=== PATIENT | female | born 1985 | race Caucasian/White ===

== ENCOUNTER 2018-04-16 16:23 | Emergency (ER) | payer MEDICAID ==
[~2018-04-16] VITALS: Ht 172.7 cm; Wt 73.0 kg
[~2018-04-16 16:23] MED LIST: CETI10CA PO; IBUP-1223 PO; LISD40CA3 PO; NORE0.3513 PO; OXYC-302 PO; PREN1TAB27 PO; SERTRALINE PO; VITAMIN C PO
[2018-04-16 16:41] VITALS: BP 135/101
[2018-04-16] MEDS ORDERED: AZITHROMYCIN 250 MG TABLET PO STA (17:27)
[2018-04-16] MEDS ORDERED: LIDOCAINE-MPF 1%, 5ML INFIL ONE (17:30)
[2018-04-16] MEDS ORDERED: CEFTRIAXONE 250 MG IM ONE (17:30)
[2018-04-16] MEDS ORDERED: HYDROmorphone 1 MG/ML, 1ML ONE (17:53)
[2018-04-16] MEDS ORDERED: AZITHROMYCIN 250 MG TABLET ONE (17:53)
[2018-04-16] MEDS ORDERED: HYDROmorphone 1 MG/ML, 1ML IM ONE (18:00)
[2018-04-16] MEDS ORDERED: LIDOCAINE-MPF 1%, 5ML ONE (18:23)
--- NOTE | 2018-04-16 18:25 | NUR ---
REPORT FROM ABDIRAHMAN MISHRA.
[2018-04-16] MEDS ORDERED: AZITHROMYCIN 250 MG TABLET PO ONE (18:30)
[2018-04-16] MEDS ORDERED: CEFTRIAXONE 250 MG ONE (18:52)
--- NOTE | 2018-04-16 18:59 | NUR ---
PT MEDICATED PER APR. POC UPDATED.
--- NOTE | 2018-04-16 19:35 | NUR ---
ATTEMPTING TO D/C PT. PT REQUESTING TO SPEAK WITH ERP REGARDING LEFT EYE.
--- NOTE | 2018-04-16 19:40 | NUR ---
PT GIVEN D/C PAPERWORK. PT VERBALIZED UNDERSTANDING. PT AWARE TO RETURN IN 2 DAYS.
== END 2018-04-16 20:01 | disposition home or self-care (01) ==
LOC: ED 19:55
DX: L02.414 Cutaneous abscess of left upper limb (principal); H57.12 Ocular pain, left eye
CPT/HCPCS: 10060; 96372; 99283; J0696; J1170

== ENCOUNTER 2018-05-19 19:13 | Emergency (ER) | payer MEDICAID ==
[~2018-05-19] VITALS: Ht 172.7 cm; Wt 75.9 kg
[2018-05-19 19:24] VITALS: BP 130/75
== END 2018-05-19 20:11 | disposition home or self-care (01) ==
LOC: ED 20:00
DX: L02.511 Cutaneous abscess of right hand (principal)
CPT/HCPCS: 99283

== ENCOUNTER 2018-08-13 11:14 | Emergency (ER) | payer MEDICAID ==
[~2018-08-13] VITALS: Ht 172.7 cm; Wt 73.2 kg
[2018-08-13 11:20] VITALS: BP 119/76
--- NOTE | 2018-08-13 11:36 | NUR ---
BILATERAL TONSIL SWELLING WITH DIFFICULTY SWALLOWING
[2018-08-13] MEDS ORDERED: DEXAMETHASONE 4 MG TABLET ONE (11:44)
[2018-08-13] MEDS ORDERED: HYDROcodone/APAP 7.5-325MG/15ML UDC ONE (11:44)
[2018-08-13] MEDS ORDERED: DEXAMETHASONE 4 MG TABLET PO ONE (12:00)
[2018-08-13] MEDS ORDERED: HYDROcodone/APAP 7.5-325MG/15ML UDC PO ONE (12:00)
== END 2018-08-13 12:27 | disposition home or self-care (01) ==
LOC: ED 12:21
DX: J03.00 Acute streptococcal tonsillitis, unspecified (principal); F17.200 Nicotine dependence, unspecified, uncomplicated
CPT/HCPCS: 87880; 99283

== ENCOUNTER 2018-09-12 06:24 | Emergency (ER) | payer MEDICAID ==
[~2018-09-12] VITALS: Ht 172.7 cm; Wt 74.7 kg
[2018-09-12 07:24] VITALS: BP 128/75
== END 2018-09-12 07:54 | disposition home or self-care (01) ==
LOC: ED 07:30
DX: L03.116 Cellulitis of left lower limb (principal); L02.416 Cutaneous abscess of left lower limb
CPT/HCPCS: 10060; 99283

== ENCOUNTER 2018-09-14 14:20 | Inpatient (IN) | payer MEDICAID ==
[~2018-09-14] VITALS: Ht 172.7 cm; Wt 80.2 kg
--- NOTE | 2018-09-14 14:35 | NUR ---
Patient drinking iced drink prior to triage, unable to measure accurate oral temperature at this time.
[2018-09-14] MEDS ORDERED: MORPHINE SULFATE 4 MG/ML, 1ML ONE ×2 (15:17→17:16)
[2018-09-14] MEDS ORDERED: VANCOMYCIN PER PHARMACY IV ONE (15:30)
[2018-09-14] MEDS ORDERED: SODIUM CHLORIDE FLUSH 10ML SYR IVF ONE (15:30)
[2018-09-14] MEDS ORDERED: AMPICILLIN/SULBACTAM 3 GM in SODIUM CHLORIDE 0.9% 100 ML IV ONE (15:30)
[2018-09-14] MEDS ORDERED: VANCOMYCIN 1,500 MG in SODIUM CHLORIDE 0.9% 250 ML IV ONE (15:30)
--- NOTE | 2018-09-14 15:51 | NUR ---
Attempting to place PIV for pt for medications and CT. Unsuccessfull attempts 4 times related to excessive scarring. Pt states, "I shoot dope, I shot dope up last night. You won't be able to get it in my upper arm, it hurts too much." Another ED RN attempted to perform ultrasound PIV and PIV, pt refused stating, "I would rather fucking . I would rather just go shoot heroin in my arm. No I won't let you place it." ED MD aware.
[2018-09-14 16:00] LABS: BASOPHILS # (AUTO) 0.01 x10^3/uL (0-0.1); BASOPHILS % (AUTO) 0 % (0-1); EOSINOPHILS # (AUTO) 0.29 x10^3/uL (0-0.4); EOSINOPHILS % (AUTO) 4 % (1-7); LYMPHOCYTES % (AUTO) 9 % (22-44); MD NO; MEAN CORPUSCULAR HEMOGLOBIN 21.2 pg (27.0-34.8); MEAN CORPUSCULAR HGB CONC 30.9 g/dL (32.4-35.8); MEAN CORPUSCULAR VOLUME 68.6 fL (80-100); MEAN PLATELET VOLUME 8.6 fL (7.4-10.4); MONOCYTES # (AUTO) 0.52 x10^3/uL (0.2-0.8); MONOCYTES % (AUTO) 6 % (2-9); NEUTROPHILS % (AUTO) 81 % (42-75); PLATELET COUNT 236 x10^3/uL (130-400); RED BLOOD COUNT 4.16 x10^6/uL (3.82-5.3); RED CELL DISTRIBUTION WIDTH 19.7 % (9.6-15.2)
[2018-09-14 16:10] LABS: ALBUMIN 3.1 g/dL (3.4-5.0); ANION GAP 9 mmol/L (5-15); CALCIUM 8.5 mg/dL (8.5-10.1); CHLORIDE 106 mmol/L (98-107); CREATININE 0.66 mg/dL (0.55-1.02)
[2018-09-14] MEDS: MORPHINE SULFATE 4 MG/ML, 1ML IV PRN ×2 (16:23→17:19)
[2018-09-14] MEDS ORDERED: OMNIPAQUE 350 MG/ML, 100ML BOTTLE ONE (17:12)
--- NOTE | 2018-09-14 18:27 | NUR ---
Provided report to ABDIRAHMAN Horta. All questions answered. Pt ready to transfer to floor from ED.
--- NOTE | 2018-09-14 18:33 | NUR ---
Pt transfered from ED to floor on gurney. ESPINOZA. Pt left with all personal belongings.
[2018-09-14 18:55] VITALS: BP 120/71
[2018-09-14] MEDS ORDERED: POTASSIUM CHLORIDE 20 MEQ TAB.ER.PRT PO ONE (19:30)
[2018-09-14] MEDS ORDERED: ACETAMINOPHEN 325 MG TABLET PO PRN (19:30)
[2018-09-14] MEDS: ENOXAPARIN 40 MG/0.4 ML SQ SCH (19:30)
[2018-09-14] MEDS ORDERED: POLYETHYLENE GLYCOL 17 GM PACKET PO PRN (19:30)
[2018-09-14] MEDS ORDERED: BISACODYL 10 MG SUPP PR PRN (19:30)
[2018-09-14] MEDS ORDERED: VANCOMYCIN PER PHARMACY MC PRN (20:00)
[2018-09-14] MEDS: OXYcodone/APAP 5/325MG TABLET PO PRN (20:01)
[2018-09-14] MEDS: LACTATED RINGERS 1,000 ML IV SCH (20:02)
[2018-09-14] MEDS ORDERED: PHARMACOKINETIC CONSULTATION MC ONE (20:30)
[2018-09-14] MEDS ORDERED: PHARMACOKINETIC MONITORING MC PRN (20:30)
[2018-09-14 20:32] LABS: HCG UR SG 1.035 (1.003-1.030)
[2018-09-14] MEDS: morphine SULFATE 10 MG/ML, 1ML IVPush PRN ×2 (20:32→23:58)
[2018-09-14 20:46] LABS: AMPHETAMINE SCREEN, URINE Positive (Negative); BARBITURATE SCREEN, URINE Negative (Negative); BENZODIAZEPINE SCREEN, URINE Negative (Negative); CANNABINOID SCREEN, URINE Negative (Negative); COCAINE SCREEN, URINE Negative (Negative); METHADONE SCREEN, URINE Negative (Negative); OPIATE SCREEN, URINE Positive (Negative)
[2018-09-14 21:28] LABS: ALBUMIN 2.8 g/dL (3.4-5.0); BILIRUBIN, DIRECT 0.1 mg/dL (0.1-0.2)
[2018-09-14 21:35] LABS: BILIRUBIN,INDIRECT 0.1 mg/dL (0.0-2.0); BILIRUBIN,TOTAL 0.2 mg/dL (0.2-1.0); TOTAL PROTEIN 6.7 g/dL (6.4-8.2)
[2018-09-14] MEDS: AMPICILLIN/SULBACTAM 3 GM in SODIUM CHLORIDE 0.9% 100 ML IV SCH (22:34)
[2018-09-15 01:23] VITALS: BP 114/65
[2018-09-15] MEDS: AMPICILLIN/SULBACTAM 3 GM in SODIUM CHLORIDE 0.9% 100 ML IV SCH ×6 (04:10→23:06)
[2018-09-15] MEDS: OXYcodone/APAP 5/325MG TABLET PO PRN ×3 (04:15→23:06)
[2018-09-15] MEDS: LACTATED RINGERS 1,000 ML IV SCH ×2 (05:16→13:40)
[2018-09-15 05:35] LABS: MEAN CORPUSCULAR HEMOGLOBIN 21.1 pg (27.0-34.8); MEAN CORPUSCULAR HGB CONC 30.5 g/dL (32.4-35.8); MEAN CORPUSCULAR VOLUME 69.2 fL (80-100); MEAN PLATELET VOLUME 8.4 fL (7.4-10.4); PLATELET COUNT 219 x10^3/uL (130-400); RED BLOOD COUNT 3.76 x10^6/uL (3.82-5.3); RED CELL DISTRIBUTION WIDTH 19.2 % (9.6-15.2)
[2018-09-15 05:37] LABS: ANION GAP 6 mmol/L (5-15); CALCIUM 8.2 mg/dL (8.5-10.1); CHLORIDE 110 mmol/L (98-107)
[2018-09-15 05:38] LABS: CREATININE 0.58 mg/dL (0.55-1.02)
[2018-09-15 06:08] LABS: MD YES
[2018-09-15 06:12] LABS: EOS#(MANUAL) 0.11 x10^3/uL (0.0-0.4); EOS% (MANUAL) 2 % (1-7); LYMPH#(MANUAL) 0.43 x10^3/uL (1-3.4); LYMPHS% (MANUAL) 8 % (22-44); MONOS#(MANUAL) 0.22 x10^3/uL (0.3-2.7); MONOS% (MANUAL) 4 % (2-9); SEG#(MANUAL) 4.64 x10^3/uL (1.8-6.8); SEGS% (MANUAL) 86 % (42-75)
[2018-09-15 06:13] LABS: <PLATELET ESTIMATE> ADEQUATE; <PLT MORPHOLOGY> NORMAL PLT MORPH; ANISOCYTOSIS 1+; HYPOCHROMIA 1+; MICROCYTOSIS 1+; OVALOCYTES 1+
[2018-09-15 07:35] VITALS: BP 111/67
[2018-09-15] MEDS: SENNA/DOCUSATE TABLET PO SCH (09:19)
[2018-09-15] MEDS: VANCOMYCIN 1,500 MG in SODIUM CHLORIDE 0.9% 250 ML IV SCH ×2 (11:44→23:49)
[2018-09-15 13:14] VITALS: BP 109/63
[2018-09-15] MEDS ORDERED: LIDOCAINE 1%, 10ML INFIL ONE (13:30)
[2018-09-15] MEDS: morphine SULFATE 10 MG/ML, 1ML IVPush PRN ×2 (15:59→20:36)
[2018-09-15] MEDS ORDERED: VANCOMYCIN 1,500 MG in SODIUM CHLORIDE 0.9% 250 ML IV SCH (17:00)
[2018-09-15 18:54] VITALS: BP 109/62
[2018-09-15] MEDS: ENOXAPARIN 40 MG/0.4 ML SQ SCH (19:30)
[2018-09-15] MEDS: FERROUS SULFATE 325 MG TABLET PO SCH (20:25)
[2018-09-16 01:46] VITALS: BP 102/60
[2018-09-16] MEDS: morphine SULFATE 10 MG/ML, 1ML IVPush PRN ×2 (03:52→20:11)
[2018-09-16] MEDS: AMPICILLIN/SULBACTAM 3 GM in SODIUM CHLORIDE 0.9% 100 ML IV SCH ×4 (04:53→23:06)
[2018-09-16 07:05] VITALS: BP 117/71
[2018-09-16] MEDS: SENNA/DOCUSATE TABLET PO SCH (08:14)
[2018-09-16] MEDS: OXYcodone/APAP 5/325MG TABLET PO PRN ×3 (08:14→23:13)
[2018-09-16] MEDS: FERROUS SULFATE 325 MG TABLET PO SCH ×2 (08:14→16:47)
[2018-09-16 10:24] LABS: MEAN CORPUSCULAR HEMOGLOBIN 21.3 pg (27.0-34.8); MEAN CORPUSCULAR HGB CONC 30.9 g/dL (32.4-35.8); MEAN CORPUSCULAR VOLUME 68.9 fL (80-100); MEAN PLATELET VOLUME 8.1 fL (7.4-10.4); PLATELET COUNT 210 x10^3/uL (130-400); RED BLOOD COUNT 3.72 x10^6/uL (3.82-5.3); RED CELL DISTRIBUTION WIDTH 20.1 % (9.6-15.2)
[2018-09-16 10:30] LABS: ANION GAP 6 mmol/L (5-15); CALCIUM 8.4 mg/dL (8.5-10.1); CHLORIDE 110 mmol/L (98-107); CREATININE 0.58 mg/dL (0.55-1.02)
[2018-09-16] MEDS: KETOROLAC 30 MG/1 ML IV PRN (10:44)
[2018-09-16 10:45] LABS: BASOPHILS # (AUTO) 0.02 x10^3/uL (0-0.1); BASOPHILS % (AUTO) 1 % (0-1); EOSINOPHILS # (AUTO) 0.19 x10^3/uL (0-0.4); EOSINOPHILS % (AUTO) 6 % (1-7); LYMPHOCYTES # (AUTO) 0.99 x10^3/uL (1-3.4); LYMPHOCYTES % (AUTO) 29 % (22-44); MONOCYTES # (AUTO) 0.29 x10^3/uL (0.2-0.8); MONOCYTES % (AUTO) 8 % (2-9); NEUTROPHILS # (AUTO) 1.94 x10^3/uL (1.8-6.8); NEUTROPHILS % (AUTO) 57 % (42-75)
[2018-09-16 10:46] LABS: MD SCAN
[2018-09-16] MEDS: VANCOMYCIN 1,500 MG in SODIUM CHLORIDE 0.9% 250 ML IV SCH ×2 (11:38→23:55)
[2018-09-16 13:45] VITALS: BP 114/73
[2018-09-16] MEDS: ENOXAPARIN 40 MG/0.4 ML SQ SCH (19:30)
[2018-09-16 19:56] VITALS: BP 129/79
[2018-09-16] MEDS: LACTATED RINGERS 1,000 ML IV SCH (23:56)
[2018-09-17 00:49] VITALS: BP 127/77
[2018-09-17] MEDS: AMPICILLIN/SULBACTAM 3 GM in SODIUM CHLORIDE 0.9% 100 ML IV SCH ×4 (04:40→22:53)
[2018-09-17] MEDS: OXYcodone/APAP 5/325MG TABLET PO PRN ×3 (05:02→19:49)
[2018-09-17] MEDS: ONDANSETRON 2MG/ML, 2ML IVPush PRN (05:02)
[2018-09-17 08:08] VITALS: BP 127/79
[2018-09-17] MEDS: LACTATED RINGERS 1,000 ML IV SCH ×2 (08:15→22:01)
[2018-09-17] MEDS: SENNA/DOCUSATE TABLET PO SCH (08:23)
[2018-09-17] MEDS: FERROUS SULFATE 325 MG TABLET PO SCH ×2 (08:23→17:13)
[2018-09-17] MEDS: morphine SULFATE 10 MG/ML, 1ML IVPush PRN ×2 (08:29→22:23)
[2018-09-17] MEDS: VANCOMYCIN 1,500 MG in SODIUM CHLORIDE 0.9% 250 ML IV SCH ×2 (12:20→23:35)
[2018-09-17 14:05] VITALS: BP 131/93
[2018-09-17 19:20] VITALS: BP 123/73
[2018-09-17] MEDS: ENOXAPARIN 40 MG/0.4 ML SQ SCH (19:21)
[2018-09-18 01:06] VITALS: BP 118/69
[2018-09-18] MEDS: ONDANSETRON 2MG/ML, 2ML IVPush PRN (04:38)
[2018-09-18] MEDS: AMPICILLIN/SULBACTAM 3 GM in SODIUM CHLORIDE 0.9% 100 ML IV SCH ×2 (04:39→11:00)
[2018-09-18 04:46] LABS: BASOPHILS % (AUTO) 0 % (0-1); EOSINOPHILS # (AUTO) 0.16 x10^3/uL (0-0.4); EOSINOPHILS % (AUTO) 3 % (1-7); LYMPHOCYTES # (AUTO) 1.03 x10^3/uL (1-3.4); LYMPHOCYTES % (AUTO) 19 % (22-44); MD NO; MEAN CORPUSCULAR HEMOGLOBIN 21.4 pg (27.0-34.8); MEAN CORPUSCULAR HGB CONC 30.8 g/dL (32.4-35.8); MEAN CORPUSCULAR VOLUME 69.4 fL (80-100); MEAN PLATELET VOLUME 7.8 fL (7.4-10.4); MONOCYTES # (AUTO) 0.21 x10^3/uL (0.2-0.8); MONOCYTES % (AUTO) 4 % (2-9); NEUTROPHILS # (AUTO) 4.16 x10^3/uL (1.8-6.8); NEUTROPHILS % (AUTO) 75 % (42-75); PLATELET COUNT 249 x10^3/uL (130-400); RED BLOOD COUNT 4.08 x10^6/uL (3.82-5.3)
[2018-09-18] MEDS: OXYcodone/APAP 5/325MG TABLET PO PRN ×2 (06:02→14:09)
[2018-09-18 07:15] VITALS: BP 119/76
[2018-09-18] MEDS: morphine SULFATE 10 MG/ML, 1ML IVPush PRN (08:13)
[2018-09-18] MEDS: SENNA/DOCUSATE TABLET PO SCH (08:13)
[2018-09-18] MEDS: FERROUS SULFATE 325 MG TABLET PO SCH (08:13)
[2018-09-18] MEDS: KETOROLAC 30 MG/1 ML IV PRN (10:23)
[2018-09-18] MEDS: VANCOMYCIN 1,500 MG in SODIUM CHLORIDE 0.9% 250 ML IV SCH (11:30)
[2018-09-18] MEDS: LACTATED RINGERS 1,000 ML IV SCH (11:30)
[2018-09-18] MEDS ORDERED: DOXY100T PO (11:45)
[2018-09-18] MEDS ORDERED: SULF1TAB24 PO (11:45)
== END 2018-09-18 15:20 | disposition home or self-care (01) | DRG 603 ==
LOC: ED 14:42 → EDIP 18:08 → 3NE 18:36 → DCLOUNGE 09-18 15:00
PROVIDERS: ADMIT Family Medicine; ATTEND Family Medicine
PROC: 0Y9D0ZZ Drainage of Left Upper Leg, Open Approach (ICD-10-PCS; principal; 2018-09-14)
DX: L02.416 Cutaneous abscess of left lower limb (principal); L03.116 Cellulitis of left lower limb; F17.200 Nicotine dependence, unspecified, uncomplicated; D50.9 Iron deficiency anemia, unspecified; E87.6 Hypokalemia; F11.90 Opioid use, unspecified, uncomplicated; F15.10 Other stimulant abuse, uncomplicated; Z66 Do not resuscitate; Z59.0 Homelessness
CPT/HCPCS: 36415; 80048; 80076; 80202; 80307; 81025; 82040; 82728; 83540; 83550; 83605; 84466; 85025; 87040; 87070; 87077; 87186; 87205; 96365; 96375; 96376; 99285; G0378; J0295; J1885; J2405; J3370; Q9967; J2270; J7050; J7120

== ENCOUNTER 2019-06-11 15:47 | Emergency (ER) | payer MEDICAID ==
[~2019-06-11] VITALS: Ht 172.7 cm; Wt 78.2 kg
[~2019-06-11 15:47] MED LIST changes: +DOXY100T PO; +SULF1TAB24 PO
[2019-06-11 15:51] VITALS: BP 129/80
== END 2019-06-11 16:59 | disposition home or self-care (01) ==
LOC: ED 16:10
DX: L02.415 Cutaneous abscess of right lower limb (principal); F17.200 Nicotine dependence, unspecified, uncomplicated
CPT/HCPCS: 99283

== ENCOUNTER 2019-09-25 22:05 | Emergency (ER) | payer MEDICAID ==
[~2019-09-25] VITALS: Ht 172.7 cm; Wt 73.1 kg
[2019-09-25 22:12] VITALS: BP 119/92
--- NOTE | 2019-09-25 22:52 | NUR ---
PT CALLED FOR ROOM AT IS TIME, IS REPORTED THAT SHE HAS LEFT
[2019-09-25] MEDS ORDERED: SODIUM CHLORIDE FLUSH 10ML SYR IVF ONE (23:00)
== END 2019-09-25 22:59 | disposition left against medical advice (07) ==
LOC: ED 22:53
DX: R10.9 Unspecified abdominal pain (principal); Z53.21 Procedure and treatment not carried out due to patient leaving prior to being seen by health care provider
CPT/HCPCS: 93005

== ENCOUNTER 2020-01-19 04:59 | Emergency (ER) | payer MEDICAID ==
[~2020-01-19] VITALS: Ht 172.7 cm; Wt 77.6 kg
--- NOTE | 2020-01-19 05:35 | NUR ---
cc of bilat lower leg and feet swelling and pain. pt states pain has gotten worse and she cant walk or sleep because of it. states she uses heroin but has not used legs in 8 months. bruising throughout bilat upper and lower legs noted in various stages of healing. mother at bedside
--- NOTE | 2020-01-19 06:20 | NUR ---
us sent to lab
--- NOTE | 2020-01-19 06:22 | NUR ---
pt ambulatory with steady gait to restroom
[2020-01-19 06:45] LABS: BASOPHILS % (AUTO) 0 % (0-1); EOSINOPHILS % (AUTO) 4 % (1-7); LYMPHOCYTES % (AUTO) 12 % (22-44); MEAN CORPUSCULAR HGB CONC 33.6 g/dL (32.4-35.8); MEAN PLATELET VOLUME 7.5 fL (7.4-10.4); MONOCYTES % (AUTO) 6 % (2-9); NEUTROPHILS % (AUTO) 78 % (42-75); PLATELET COUNT 165 x10^3/uL (130-400); RED BLOOD COUNT 3.63 x10^6/uL (3.82-5.3); RED CELL DISTRIBUTION WIDTH 14.9 % (9.6-15.2)
[2020-01-19 06:47] LABS: ALANINE AMINOTRANSFERASE 18 U/L (12-78); ALBUMIN 2.6 g/dL (3.4-5.0); ANION GAP 8 mmol/L (5-15); CALCIUM 8.7 mg/dL (8.5-10.1); CHLORIDE 103 mmol/L (98-107); CREATININE 0.61 mg/dL (0.55-1.02)
[2020-01-19 06:52] LABS: ALKALINE PHOSPHATASE 118 U/L (45-117); BILIRUBIN,TOTAL 0.5 mg/dL (0.2-1.0); TOTAL PROTEIN 7.2 g/dL (6.4-8.2)
[2020-01-19 07:12] LABS: MD NO
--- NOTE | 2020-01-19 07:12 | NUR ---
report given to lawson rios
--- NOTE | 2020-01-19 07:18 | NUR ---
patient in bed resting, mom at bedside. patient has splotchy red spots scattered from knee distally on both ble. patient states unknown origin. none are draining/warm/red. there is 1+ edema ble.
[2020-01-19 08:01] LABS: MICROSCOPIC INDICATED
--- NOTE | 2020-01-19 08:20 | NUR ---
called lab and they are working on ua. states with student so taking some extra time
[2020-01-19 09:17] VITALS: BP 115/78
--- NOTE | 2020-01-19 09:18 | NUR ---
reviewed discharge. patients mom driving.
--- NOTE | 2020-01-19 09:32 | NUR ---
PATIENT ANGRY SCREAMING THAT SHE HAS TO SHOOT HEROIN JUST TO WALK. EXPLAINED DISCHARGE TO HER AND MD DID WELL. ANGRY. AIDET.
== END 2020-01-19 09:34 | disposition home or self-care (01) ==
LOC: ED 07:44
DX: I87.2 Venous insufficiency (chronic) (peripheral) (principal); R60.0 Localized edema; M25.572 Pain in left ankle and joints of left foot; M25.571 Pain in right ankle and joints of right foot; M79.661 Pain in right lower leg; M79.662 Pain in left lower leg; F11.10 Opioid abuse, uncomplicated; F17.200 Nicotine dependence, unspecified, uncomplicated
CPT/HCPCS: 36415; 71045; 80053; 81001; 84703; 85025; 87086; 93970; 99285

== ENCOUNTER 2020-02-17 13:40 | Inpatient (IN) | payer MEDICAID ==
[~2020-02-17] VITALS: Ht 172.7 cm; Wt 68.0 kg
[2020-02-17] MEDS ORDERED: SODIUM CHLORIDE FLUSH 10ML SYR IVF ONE (14:00)
[2020-02-17] MEDS ORDERED: SODIUM CHLORIDE 0.9% 1,000ML IVBOLUS ONE ×2 (14:00→15:00)
--- NOTE | 2020-02-17 14:21 | NUR ---
PER EMS, PT WAS TRANSFERRED FROM [facility] FOR [facility]. PER EMS, STAFF AT [facility] STATES PT HAS BEEN HAVING INCREASING WORSENING IN MENTATION. PROVIDER BEDSIDE. PT STATED SHE HAS BEEN TAKING TOO MUCH OF HER MEDICATION.
--- NOTE | 2020-02-17 14:21 | NUR ---
PROVIDER ADVISED OF PT'S BP. PROVIDER IS ADVISING TO ADMINISTER 1000 ML NS. NO NARCAN AT THIS TIME.
[2020-02-17 14:42] LABS: BASOPHILS % (AUTO) 1 % (0-1); EOSINOPHILS % (AUTO) 1 % (1-7); LYMPHOCYTES % (AUTO) 8 % (22-44); MEAN PLATELET VOLUME 7.5 fL (7.4-10.4); MONOCYTES % (AUTO) 6 % (2-9); NEUTROPHILS % (AUTO) 86 % (42-75); PLATELET COUNT 172 x10^3/uL (130-400); RED BLOOD COUNT 2.88 x10^6/uL (3.82-5.3); RED CELL DISTRIBUTION WIDTH 16.8 % (9.6-15.2)
[2020-02-17 14:52] LABS: ALANINE AMINOTRANSFERASE 36 U/L (12-78); ANION GAP 7 mmol/L (5-15); CALCIUM 8.1 mg/dL (8.5-10.1); CHLORIDE 104 mmol/L (98-107); CREATININE 0.58 mg/dL (0.55-1.02)
[2020-02-17 14:54] LABS: SALICYLATE LEVEL < 1.7 mg/dL (2.8-20.0)
[2020-02-17 14:56] LABS: MD SCAN
[2020-02-17 14:57] LABS: ALKALINE PHOSPHATASE 107 U/L (45-117); BILIRUBIN,TOTAL 0.3 mg/dL (0.2-1.0); TOTAL PROTEIN 5.7 g/dL (6.4-8.2)
--- NOTE | 2020-02-17 14:58 | NUR ---
BREAK RN: PT LAYING ON GURNEY WITH EYES OPEN BUT NO ORIENTED, NO NEEDS AT THIS TIME, CALL LIGHT WITHIN REACH, AWAITING BLOOD CX DRAW.
[2020-02-17] MEDS ORDERED: CEFTRIAXONE PMX 1GM/50ML 50 ML ONE (15:00)
[2020-02-17] MEDS: CEFTRIAXONE PMX 1GM/50ML 50 ML IVPB ONE ×2 (15:02→15:13)
[2020-02-17] MEDS ORDERED: AZITHROMYCIN 500 MG in SODIUM CHLORIDE 0.9% 250 ML IVPB ONE (15:30)
[2020-02-17 16:28] LABS: MICROSCOPIC AUTO
[2020-02-17 16:34] LABS: AMPHETAMINE SCREEN, URINE Negative (Negative); BARBITURATE SCREEN, URINE Positive (Negative); BENZODIAZEPINE SCREEN, URINE Negative (Negative); CANNABINOID SCREEN, URINE Negative (Negative); COCAINE SCREEN, URINE Negative (Negative); METHADONE SCREEN, URINE Negative (Negative); OPIATE SCREEN, URINE Negative (Negative)
--- NOTE | 2020-02-17 17:26 | NUR ---
REPORT FROM SRINI GARY.
[2020-02-17 17:45] VITALS: BP 84/44
[2020-02-17 18:04] VITALS: BP 87/46
[2020-02-17 18:19] VITALS: BP 77/41
--- NOTE | 2020-02-17 18:30 | NUR ---
BREAK RN. RECEIVING BEDSIDE REPORT FROM KEVON RN. PT HYPOTENSIVE BP 77/41. DR. CLAYTON AT BEDSIDE FOR EVALUATION. PT A&OX4, DROWSY, SLOW TO RESPOND. TO MOVE TO TRAUMA 3 FOR CENTRAL LINE PLACEMENT AND PRESSOR ADMIN.
--- NOTE | 2020-02-17 18:32 | NUR ---
PT MOVED TO TRAUMA 3, REPORT AND TRANSFER OF CARE TO MEREDITH GARY. DR. CLAYTON AT BEDSIDE
--- NOTE | 2020-02-17 18:40 | NUR ---
PT MOVED TO TR 03 AT THIS TIME. PT AGREES TO CENTRAL LINE. RISKS AND BENIFITS EXPLAINED BY DR CLAYTON. PROCEDURE SET UP. CHECKLIST COMPLETE, CONSENT VERBALIZED BY PT AND PT AGREES TO VERBAL SIGNITURE. PT REMAINS ANXIOUS PRIOR TO PROCEDURE. PT EDUCATED ON THE NEED AND AT THIS TIME AGREES TO CENTRAL LINE.
--- NOTE | 2020-02-17 18:49 | NUR ---
REPORT FROM ABDIRAHMAN HARPER. DR CLAYTON AT BEDSIDE FOR CENTRAL LINE. PT TEARFUL, CRYING LOUDLY. BP/SPO2/ECG MONITORING IN PLACE
[2020-02-17 18:54] VITALS: BP 110/52
--- NOTE | 2020-02-17 18:59 | NUR ---
PT NON-COMPLIANT WITH CENTRAL LINE PLACEMENT. BP UP TO 106/52 WHEN AGGITATED. PT DENIES PAIN/NAUSEA. DENIES RECENT SYNCOPE/HEMATOCHEZIA/HEMATEMESIS. ERP TO PLACE ORDER FOR PICC LINE. NO ORDERS FOR PRESSORS AT THIS TIME. BLOOD TRANSFUSING, NO S/S OF TRANSFUSION RXN NOTED.
[2020-02-17] MEDS ORDERED: POTASSIUM PO (19:10)
[2020-02-17] MEDS ORDERED: FIORICET PO (19:10)
[2020-02-17] MEDS ORDERED: BUPR1FIL7 PO (19:10)
--- NOTE | 2020-02-17 19:10 | NUR ---
SOFT BP'S. PT TAKING PO FLUIDS WO DIFFICULTY. A&OX4, SLOW COGNITION.
--- NOTE | 2020-02-17 19:24 | NUR ---
BP CONTINUE TO BE SOFT. ORDERS RECEIVED FOR LEVOPHED TO BE HUNG THROUGH A PERIPHERAL IV UNTIL PICC PLACED, PER ERP. LEVOPHED REQUESTED FROM PHARMACY
[2020-02-17] MEDS ORDERED: SODIUM CHLORIDE 0.9% 1,000 ML IV ONE (19:30)
[2020-02-17] MEDS ORDERED: LABETALOL 5MG/ML, 20ML IVPush PRN (19:30)
[2020-02-17] MEDS ORDERED: ONDANSETRON 2MG/ML, 2ML IVPush PRN (19:30)
[2020-02-17] MEDS ORDERED: SODIUM CHLORIDE FLUSH 10ML SYR IVF PRN (19:30)
[2020-02-17] MEDS ORDERED: DOCUSATE 100 MG CAPSULE PO PRN (19:30)
[2020-02-17] MEDS ORDERED: NOREPINEPHRINE 8 MG in SODIUM CHLORIDE 0.9% 242 ML IV PRN (19:30)
[2020-02-17] MEDS ORDERED: GUAIFENESIN/DM 200-20MG, 10ML UDC PO PRN (19:30)
[2020-02-17] MEDS ORDERED: NS + 20MEQ KCL 1,000 ML IV SCH (19:30)
[2020-02-17] MEDS ORDERED: HYDR-2995 PO (19:52)
[2020-02-17] MEDS ORDERED: HYDR25CA94 PO (19:52)
[2020-02-17] MEDS ORDERED: GABA800T5 PO (19:52)
[2020-02-17] MEDS ORDERED: PROP20TA PO (19:52)
[2020-02-17] MEDS ORDERED: CLON-275 PO (19:52)
[2020-02-17] MEDS ORDERED: DIPH1TAB6 PO (19:52)
[2020-02-17] MEDS ORDERED: LOPE2CAP PO (19:52)
[2020-02-17] MEDS ORDERED: IBUP200T49 PO (19:52)
--- NOTE | 2020-02-17 19:52 | NUR ---
CONSENT FOR PICC SIGNED. TECH AT BEDSIDE TO PREPARE PT FOR PROCEDURE.
[2020-02-17 20:09] LABS: ABSOLUTE RETICS # 0.091 x10^6/uL (0.5-2.5); RED BLOOD COUNT 2.84 x10^6/uL (3.82-5.3); RETICULOCYTE COUNT % 3.19 % (0.5-1.5)
--- NOTE | 2020-02-17 20:14 | NUR ---
PICC PLACED AT BEDSIDE BY DR BARKLEY. PT TOLERATED WELL. LEVOPHED INFUSING THROUGH PIV
[2020-02-17] MEDS ORDERED: NS + 20MEQ KCL 1,000 ML IV ONE (20:27)
--- NOTE | 2020-02-17 20:50 | NUR ---
PT W PERIOD OF BRADYCARIDA, HR 37-45. REPEAT EKG COMPLETED. PT ASYMPTOMATIC. REPORT TO ABDIRAHMAN VIGIL.
[2020-02-17] MEDS: FAMOTIDINE 20 MG/2 ML IVPush SCH (21:24)
[2020-02-17 21:29] LABS: D-DIMER (DIC) 2.43 ug/mlFEU (0.00-0.52)
[2020-02-17] MEDS ORDERED: VASOPRESSIN 20 UNIT in SODIUM CHLORIDE 0.9% 99 ML IV PRN (21:30)
[2020-02-17 21:32] LABS: PROTIME 13.7 Seconds (9.6-11.5)
[2020-02-17 23:11] VITALS: BP 88/41
[2020-02-18] MEDS: ACETAMINOPHEN 325 MG TABLET PO PRN (04:16)
[2020-02-18 04:53] LABS: BASOPHILS % (AUTO) 0 % (0-1); EOSINOPHILS % (AUTO) 1 % (1-7); LYMPHOCYTES % (AUTO) 7 % (22-44); MEAN CORPUSCULAR HEMOGLOBIN 26.3 pg (27.0-34.8); MEAN CORPUSCULAR HGB CONC 33.6 g/dL (32.4-35.8); MEAN PLATELET VOLUME 7.7 fL (7.4-10.4); MONOCYTES % (AUTO) 5 % (2-9); NEUTROPHILS % (AUTO) 86 % (42-75); PLATELET COUNT 166 x10^3/uL (130-400); RED BLOOD COUNT 3.29 x10^6/uL (3.82-5.3); RED CELL DISTRIBUTION WIDTH 16.7 % (9.6-15.2)
[2020-02-18 05:04] LABS: ALBUMIN 2.1 g/dL (3.4-5.0); ANION GAP 5 mmol/L (5-15); CALCIUM 8.2 mg/dL (8.5-10.1); CHLORIDE 108 mmol/L (98-107)
[2020-02-18 05:07] LABS: ALANINE AMINOTRANSFERASE 30 U/L (12-78); ALKALINE PHOSPHATASE 111 U/L (45-117); BILIRUBIN,TOTAL 0.9 mg/dL (0.2-1.0); TOTAL PROTEIN 6.1 g/dL (6.4-8.2)
[2020-02-18 06:09] LABS: MD SCAN
[2020-02-18] MEDS ORDERED: MAGNESIUM SULFATE PMX 4GM/100M 100 ML IVPB ONE (07:00)
[2020-02-18] MEDS: FAMOTIDINE 20 MG/2 ML IVPush SCH (08:01)
[2020-02-18] MEDS: BUPRENORPHINE/NALOXONE 8-2MG SL SCH (14:08)
[2020-02-18] MEDS: CEFTRIAXONE PMX 1GM/50ML 50 ML IV SCH (15:20)
[2020-02-18] MEDS: AZITHROMYCIN 500 MG in SODIUM CHLORIDE 0.9% 250 ML IV SCH (16:22)
[2020-02-18 18:15] VITALS: BP 99/70
[2020-02-18] MEDS: FAMOTIDINE 20 MG TABLET PO SCH (19:57)
[2020-02-18 20:28] VITALS: BP 98/65
[2020-02-19 03:23] VITALS: BP 104/68
[2020-02-19 07:03] VITALS: BP 104/64
[2020-02-19] MEDS: GABAPENTIN 100 MG CAPSULE PO SCH ×2 (10:47→21:40)
[2020-02-19] MEDS: FAMOTIDINE 20 MG TABLET PO SCH ×2 (10:47→21:39)
[2020-02-19] MEDS: BUPRENORPHINE/NALOXONE 8-2MG SL SCH (10:48)
[2020-02-19] MEDS ORDERED: ENOXAPARIN 40 MG/0.4 ML SQ SCH (11:00)
[2020-02-19 12:40] VITALS: BP 105/68
[2020-02-19] MEDS ORDERED: OMNIPAQUE 350 MG/ML, 100ML BOTTLE ONE (13:51)
[2020-02-19] MEDS: hydrOXyzine 10MG TABLET PO SCH ×2 (17:46→21:00)
[2020-02-19] MEDS: CEFTRIAXONE PMX 1GM/50ML 50 ML IV SCH (17:47)
[2020-02-19 19:35] VITALS: BP 95/69
[2020-02-19] MEDS: AZITHROMYCIN 500 MG in SODIUM CHLORIDE 0.9% 250 ML IV SCH (20:19)
[2020-02-19 21:00] LABS: OCCULT BLOOD NEGATIVE (NEGATIVE)
[2020-02-19] MEDS ORDERED: HYDROXYZINE PAMOATE 25MG CAP PO SCH (21:00)
[2020-02-20 01:04] VITALS: BP 108/67
[2020-02-20] MEDS: ACETAMINOPHEN 325 MG TABLET PO PRN (04:57)
[2020-02-20 05:04] LABS: BASOPHILS % (AUTO) 1 % (0-1); EOSINOPHILS % (AUTO) 1 % (1-7); LYMPHOCYTES % (AUTO) 9 % (22-44); MEAN CORPUSCULAR HEMOGLOBIN 26.7 pg (27.0-34.8); MEAN CORPUSCULAR HGB CONC 33.8 g/dL (32.4-35.8); MEAN PLATELET VOLUME 7.3 fL (7.4-10.4); MONOCYTES % (AUTO) 6 % (2-9); NEUTROPHILS % (AUTO) 82 % (42-75); PLATELET COUNT 200 x10^3/uL (130-400); RED BLOOD COUNT 3.43 x10^6/uL (3.82-5.3); RED CELL DISTRIBUTION WIDTH 17.6 % (9.6-15.2)
[2020-02-20 05:09] LABS: MD NO
[2020-02-20 05:14] LABS: ALANINE AMINOTRANSFERASE 31 U/L (12-78); ALBUMIN 2.1 g/dL (3.4-5.0); ANION GAP 6 mmol/L (5-15); CALCIUM 8.4 mg/dL (8.5-10.1); CHLORIDE 103 mmol/L (98-107)
[2020-02-20 05:17] LABS: ALKALINE PHOSPHATASE 102 U/L (45-117); BILIRUBIN,TOTAL 0.3 mg/dL (0.2-1.0); CREATININE 0.42 mg/dL (0.55-1.02); TOTAL PROTEIN 6.2 g/dL (6.4-8.2)
[2020-02-20 07:21] VITALS: BP 101/62
[2020-02-20] MEDS ORDERED: BUPRENORPHINE/NALOXONE 2-0.5MG SL ONE (09:14)
[2020-02-20] MEDS ORDERED: BUPRENORPHINE HCL/NALOXONE 8-2MG FILM SL ONE (09:26)
[2020-02-20] MEDS: GABAPENTIN 100 MG CAPSULE PO SCH (09:32)
[2020-02-20] MEDS: FAMOTIDINE 20 MG TABLET PO SCH (09:33)
[2020-02-20] MEDS: BUPRENORPHINE/NALOXONE 8-2MG SL SCH (09:33)
[2020-02-20] MEDS: hydrOXyzine 10MG TABLET PO SCH (09:33)
[2020-02-20] MEDS ORDERED: POTASSIUM CHLORIDE 20 MEQ TAB.ER.PRT PO ONE ×2 (10:30→12:00)
[2020-02-20] MEDS ORDERED: POTASSIUM CHLORIDE 20 MEQ in SODIUM CHLORIDE 0.9% 250 ML IV ONE (10:30)
[2020-02-20] MEDS ORDERED: LOPE2CAP PO (12:26)
[2020-02-20] MEDS ORDERED: AMOX1TAB64 PO (12:26)
[2020-02-20 12:57] VITALS: BP 97/64
== END 2020-02-20 16:42 | DRG 871 ==
LOC: ED 17:22 → EDIP 19:23 → CCU 21:01 → 3N 02-18 18:15
PROVIDERS: ADMIT Family Medicine; ATTEND Internal Medicine
PROC: 02HV33Z Insertion of Infusion Device into Superior Vena Cava, Percutaneous Approach (ICD-10-PCS; principal; 2020-02-17)
PROC: 30233N1 Transfusion of Nonautologous Red Blood Cells into Peripheral Vein, Percutaneous Approach (ICD-10-PCS; 2020-02-17)
DX: A41.9 Sepsis, unspecified organism (principal); G93.41 Metabolic encephalopathy; J15.9 Unspecified bacterial pneumonia; R65.21 Severe sepsis with septic shock; D62 Acute posthemorrhagic anemia; D50.9 Iron deficiency anemia, unspecified; E87.6 Hypokalemia; E83.42 Hypomagnesemia; E88.09 Other disorders of plasma-protein metabolism, not elsewhere classified; F17.200 Nicotine dependence, unspecified, uncomplicated; I95.2 Hypotension due to drugs; N92.1 Excessive and frequent menstruation with irregular cycle; N93.8 Other specified abnormal uterine and vaginal bleeding; Z20.828 Contact with and (suspected) exposure to other viral communicable diseases; F19.10 Other psychoactive substance abuse, uncomplicated
CPT/HCPCS: 36415; 36556; 84145; 87806; 96361; 96365; 96366; 96375; 99285; J0574; 36573; 70450; 71045; 71275; 80053; 80074; 80299; 80307; 80320; 80329; 81001; 82272; 82728; 83540; 83550; 83605; 83615; 83735; 84132; 84443; 84703; 85025; 85045; 85049; 85379; 85384; 85610; 85730; 86140; 86850; 86900; 86923; 87040; 87081; 93005; G0378; J0456; J0696; J1650; J3480; Q9967; C1751; G0475; G0480; J3475; J7030; J7050; P9016; U0003

== ENCOUNTER 2020-02-26 09:57 | Inpatient (IN) | payer MEDICAID ==
[~2020-02-26] VITALS: Ht 167.6 cm; Wt 70.1 kg
[~2020-02-26 09:57] MED LIST changes: +AMOX1TAB64 PO; +BUPR1FIL7 PO; +CLON-275 PO; +DIPH1TAB6 PO; +FIORICET PO; +GABA800T5 PO; +HYDR-2995 PO; +HYDR25CA94 PO; +IBUP200T49 PO; +LOPE2CAP PO; -OXYC-302 PO; +OXYC1TAB14 PO; +POTASSIUM PO; +PROP20TA PO
--- NOTE | 2020-02-26 10:09 | NUR ---
THIS IS A 35 YO F BIB EMS FROM [facility] W/ C/O AMS. PT THERE FOR OPIOID ADDICTION. PER EMS, STARTING THIS MORNING PT IS UNCOOPERATIVE AND COMBATIVE. PT COMBATIVE W/ THIS RN WHILE TRYING TO OBTAIN VITALS AND HX. PT WILL ONLY YELL "NO FUCK YOU I DONT FUCKING FEEL GOOD FEEL GOOD FEEL GOOD NO". REFUSING TO ANSWER ASSESSMENT QUESTIONS. PROVIDER UPDATED.
--- NOTE | 2020-02-26 10:10 | NUR ---
PER EMS UNABLE TO OBTAIN IV ACCESS D/T PTS COMBATIVE NATURE. PER EMS PT WAS DX W/ BILAT PNA LAST WEEK AND IS ON DOXYCYCLINE AND SULFA ABX. PT ALSO TAKES SUBOXONE. PTS BASELINE A&OX4.
[2020-02-26] MEDS ORDERED: KETAMINE 10 MG/ML, 20ML ONE (10:12)
--- NOTE | 2020-02-26 10:15 | NUR ---
UNABLE TO OBTAIN VS DUE TO PTS COMBATIVE BEHAVIOR.
[2020-02-26] MEDS ORDERED: SODIUM CHLORIDE 0.9% 1,000ML IVBOLUS ONE (10:30)
[2020-02-26] MEDS ORDERED: KETAMINE 100 MG/ML, 5ML IM ONE (10:30)
--- NOTE | 2020-02-26 10:35 | NUR ---
PT MEDICATED PER EMAR W/ ASSISTANCE FROM 2 OTHER RNS. PT VSS, NADN. STRAIGHT CATH URINE OBTAINED, PIV STARTED. PT RESP EVEN AND UNLABORED, NADN.
--- NOTE | 2020-02-26 10:39 | NUR ---
ATTEMPT TO START IV, PT COMBATIVE AND AGITATED, ATTEMPTING TO HIT THIS RN.
--- NOTE | 2020-02-26 10:40 | NUR ---
Zechariah colon in [facility] - 02/26/20 at 1041 by CRYSTAL ATTEMPT TO CALL REPORT X2, NO ANSWER.
[2020-02-26] MEDS ORDERED: LORazepam 2 MG/ML, 1ML IV ONE (11:00)
--- NOTE | 2020-02-26 11:05 | NUR ---
LAB IN ROOM.
[2020-02-26] MEDS ORDERED: LORazepam 2 MG/ML, 1ML ONE ×2 (11:06→14:53)
--- NOTE | 2020-02-26 11:06 | NUR ---
REPORT GIVEN TO KIET GARY. PT SLEEPING ON GURNEY W/ SIDE RAILS UPX2, RESP EVEN AND UNLABORED, VSS, NADN. LABS AND URINE PENDING.
--- NOTE | 2020-02-26 11:07 | NUR ---
RECEIVED REPORT FROM DANIEL GARY. ASSUMING CARE AT THIS TIME. PT RESTING AFTER KETAMINE ADMIN. PT CONNECTED TO MONITORING. FALL PRECAUTIONS IN PLACE.
--- NOTE | 2020-02-26 11:16 | NUR ---
400MG KETAMINE VIAL WASTED W/ EDER RN (FROM PHARMACY). 200MG KETAMINE VIAL WASTED W/ EDER RN.
[2020-02-26 11:19] LABS: BASOPHILS % (AUTO) 1 % (0-1); EOSINOPHILS % (AUTO) 2 % (1-7); LYMPHOCYTES % (AUTO) 9 % (22-44); MEAN CORPUSCULAR HEMOGLOBIN 26.5 pg (27.0-34.8); MEAN PLATELET VOLUME 7.2 fL (7.4-10.4); MONOCYTES % (AUTO) 4 % (2-9); NEUTROPHILS % (AUTO) 83 % (42-75); PLATELET COUNT 249 x10^3/uL (130-400); RED BLOOD COUNT 4.11 x10^6/uL (3.82-5.3); RED CELL DISTRIBUTION WIDTH 18.2 % (9.6-15.2)
--- NOTE | 2020-02-26 11:21 | NUR ---
PT PLACED IN TWO WRIST SOFT RESTRAINTS, PER MD ORDER. CMS INTACT. PT GIVEN ATIVAN PER APR. PT CONNECTED TO MONITORING. IVF RUNNING.
[2020-02-26 11:32] LABS: ANION GAP 6 mmol/L (5-15); CHLORIDE 101 mmol/L (98-107)
[2020-02-26 11:36] LABS: MICROSCOPIC INDICATED
[2020-02-26 11:42] LABS: AMPHETAMINE SCREEN, URINE Negative (Negative); BARBITURATE SCREEN, URINE Negative (Negative); BENZODIAZEPINE SCREEN, URINE Negative (Negative); CANNABINOID SCREEN, URINE Negative (Negative); COCAINE SCREEN, URINE Negative (Negative); METHADONE SCREEN, URINE Negative (Negative); OPIATE SCREEN, URINE Negative (Negative)
[2020-02-26 11:42] LABS: ALANINE AMINOTRANSFERASE 26 U/L (12-78); ALBUMIN 3.1 g/dL (3.4-5.0); ALKALINE PHOSPHATASE 108 U/L (45-117); BILIRUBIN,TOTAL 0.5 mg/dL (0.2-1.0); CREATININE 1.11 mg/dL (0.55-1.02); SALICYLATE LEVEL 2.1 mg/dL (2.8-20.0); TOTAL PROTEIN 8.5 g/dL (6.4-8.2)
--- NOTE | 2020-02-26 12:05 | NUR ---
EKG AND XRAY COMPLETE. PT RESTING ON GURNEY. RESTRAINTS IN PLACE. CMS INTACT. PT AGITATED WHEN ASKED QUESTIONS.
[2020-02-26 12:10] LABS: % IRON SATURATION 17 % (20-55); IRON LEVEL 35 mcg/dL (50-170); TOTAL IRON BINDING CAPACITY 209 mcg/dL (250-450)
[2020-02-26 12:22] LABS: MD SCAN
--- NOTE | 2020-02-26 12:32 | NUR ---
HOSPITALIST AT BEDSIDE FOR ASSESSMENT. PT DOES NOT ANSWER QUESTIONS, ONLY WHINES AND CURSES. RESP EVEN AND UNLABORED. ALEXIS.
[2020-02-26] MEDS ORDERED: DOXYCYCLINE 100 MG in DEXTROSE 5% 250 ML IV SCH (13:00)
[2020-02-26] MEDS ORDERED: HYDROXYZINE PAMOATE 25MG CAP PO PRN (13:00)
[2020-02-26] MEDS ORDERED: GUAIFENESIN/DM 200-20MG, 10ML UDC PO PRN (13:00)
[2020-02-26] MEDS ORDERED: PROPRANOLOL 20 MG TABLET PO PRN (13:00)
[2020-02-26] MEDS ORDERED: MELATONIN 5 MG TABLET PO PRN (13:00)
[2020-02-26] MEDS ORDERED: TEMPLATE NON-FORMULARY MED. (Clonidine Hcl** (Clonidine Hcl Er**) 0.1 MG) PO PRN (13:00)
[2020-02-26] MEDS ORDERED: POLYETHYLENE GLYCOL 17 GM PACKET PO PRN (13:00)
[2020-02-26 13:09] LABS: BASOPHILS % (AUTO) 0 % (0-1); EOSINOPHILS % (AUTO) 2 % (1-7); LYMPHOCYTES % (AUTO) 9 % (22-44); MEAN CORPUSCULAR HEMOGLOBIN 26.2 pg (27.0-34.8); MEAN PLATELET VOLUME 7.2 fL (7.4-10.4); MONOCYTES % (AUTO) 5 % (2-9); NEUTROPHILS % (AUTO) 85 % (42-75); PLATELET COUNT 224 x10^3/uL (130-400); RED BLOOD COUNT 3.81 x10^6/uL (3.82-5.3); RED CELL DISTRIBUTION WIDTH 18.9 % (9.6-15.2)
[2020-02-26 13:26] LABS: MD SCAN
[2020-02-26] MEDS ORDERED: methylPREDNISolone SOD SUCC 125 MG/2 ML ONE (13:55)
[2020-02-26] MEDS ORDERED: CEFTRIAXONE PMX 2GM/50ML 50 ML ONE (13:56)
[2020-02-26] MEDS: LACTATED RINGERS 1,000 ML IV SCH ×2 (14:02→23:57)
[2020-02-26] MEDS: CEFTRIAXONE PMX 2GM/50ML 50 ML IVPB SCH (14:02)
[2020-02-26] MEDS: methylPREDNISolone SOD SUCC 125 MG/2 ML IVPush SCH ×2 (14:02→21:29)
--- NOTE | 2020-02-26 14:28 | NUR ---
PIV IN RIGHT HAND INFILTRATED. NEW PIV PLACED LEFT UPPER ARM. PT SCREAMING PROFANITIES THE ENTIRE TIME. PT DID NOT ANSWER WHAT DOESNT FEEL GOOD. PT STOPPED YELLING AND RESTING AFTER BEING LEFT ALONE.
--- NOTE | 2020-02-26 14:58 | NUR ---
PT SITTING UP ON GURNEY YELLING "I DON'T FEEL GOOD, IT HURTS". PT WILL NOT ANSWER WHAT HURTS. RECEIVED V/O FOR ATIVAN 1MG IV ONCE. ORDER INPUT, FEEDER ASSOCIATE. PT NOW LAYING ON GURNEY, STILL YELLING THE SAME WORDS. PT CONTINUES WITH TWO SOFT ARM RESTRAINTS. CMS INTACT.
[2020-02-26] MEDS ORDERED: LORazepam 2 MG/ML, 1ML IVPush ONE (15:00)
[2020-02-26] MEDS: PLEASE ENTER WEIGHT MC SCH ×2 (15:00→23:00)
--- NOTE | 2020-02-26 15:00 | NUR ---
PER HOSPITALIST, PT TO BE NPO.
--- NOTE | 2020-02-26 15:31 | NUR ---
PT RESTING ON GURNEY. HENRY
--- NOTE | 2020-02-26 15:34 | NUR ---
PT CONTINUES SOFT RESTRAINTS. CMS INTACT.
--- NOTE | 2020-02-26 15:41 | NUR ---
REPORT GIVEN TO CARMENZA GARY.
--- NOTE | 2020-02-26 15:52 | NUR ---
US AT BEDSIDE.
[2020-02-26] MEDS: BUPRENORPHINE/NALOXONE 8-2MG SL SCH (16:00)
[2020-02-26 16:21] LABS: INTERNATIONAL NORMALIZED RATIO 1.13 (0.93-1.1)
[2020-02-26 16:31] VITALS: BP 111/73
[2020-02-26 16:56] VITALS: BP 111/73
[2020-02-26 18:42] LABS: HCG UR SG 1.015 (1.003-1.030)
[2020-02-26 20:21] VITALS: BP 107/67
[2020-02-26] MEDS: HEPARIN 5,000 UNITS/ML, 1ML SQ SCH (21:29)
[2020-02-26] MEDS: SODIUM CHLORIDE FLUSH 10ML SYR IVF SCH (21:29)
[2020-02-26] MEDS: LORazepam 2 MG/ML, 1ML IVPush PRN (22:52)
[2020-02-26] MEDS ORDERED: OMNIPAQUE 350 MG/ML, 75ML BOTTLE ONE (23:45)
[2020-02-27 01:46] VITALS: BP 109/60
[2020-02-27] MEDS: DOXYCYCLINE 100 MG in DEXTROSE 5% 250 ML IV SCH ×2 (02:06→14:00)
[2020-02-27] MEDS: methylPREDNISolone SOD SUCC 125 MG/2 ML IVPush SCH ×4 (03:08→23:20)
[2020-02-27] MEDS: HEPARIN 5,000 UNITS/ML, 1ML SQ SCH ×3 (05:00→23:20)
[2020-02-27] MEDS: LORazepam 2 MG/ML, 1ML IVPush PRN (05:01)
[2020-02-27 05:27] VITALS: BP 113/76
[2020-02-27] MEDS: PLEASE ENTER WEIGHT MC SCH (05:51)
[2020-02-27 06:08] LABS: ANION GAP 5 mmol/L (5-15); CALCIUM 9.7 mg/dL (8.5-10.1); CHLORIDE 100 mmol/L (98-107); CREATININE 0.63 mg/dL (0.55-1.02)
[2020-02-27 07:01] VITALS: BP 113/80
[2020-02-27] MEDS: LACTATED RINGERS 1,000 ML IV SCH ×2 (07:30→22:07)
[2020-02-27] MEDS: SODIUM CHLORIDE FLUSH 10ML SYR IVF SCH ×2 (09:00→23:21)
[2020-02-27] MEDS: BUPRENORPHINE/NALOXONE 8-2MG SL SCH (09:00)
[2020-02-27] MEDS: CEFTRIAXONE PMX 2GM/50ML 50 ML IVPB SCH (13:00)
[2020-02-27 15:48] VITALS: BP 108/75
[2020-02-27 20:00] VITALS: BP 101/62
[2020-02-27] MEDS ORDERED: HALOPERIDOL 5 MG/ML IM ONE (21:00)
[2020-02-28 00:21] VITALS: BP 97/59
[2020-02-28] MEDS: DOXYCYCLINE 100 MG in DEXTROSE 5% 250 ML IV SCH (02:24)
[2020-02-28 05:06] LABS: BASOPHILS % (AUTO) 0 % (0-1); EOSINOPHILS % (AUTO) 0 % (1-7); LYMPHOCYTES % (AUTO) 7 % (22-44); MEAN CORPUSCULAR HEMOGLOBIN 26.2 pg (27.0-34.8); MEAN CORPUSCULAR HGB CONC 33.1 g/dL (32.4-35.8); MEAN PLATELET VOLUME 7.3 fL (7.4-10.4); MONOCYTES % (AUTO) 4 % (2-9); NEUTROPHILS % (AUTO) 89 % (42-75); PLATELET COUNT 287 x10^3/uL (130-400); RED BLOOD COUNT 4.26 x10^6/uL (3.82-5.3); RED CELL DISTRIBUTION WIDTH 19.2 % (9.6-15.2)
[2020-02-28 05:11] LABS: MD NO
[2020-02-28 05:21] LABS: ALANINE AMINOTRANSFERASE 20 U/L (12-78); ALBUMIN 2.9 g/dL (3.4-5.0); ANION GAP 8 mmol/L (5-15); CHLORIDE 103 mmol/L (98-107)
[2020-02-28 05:24] LABS: ALKALINE PHOSPHATASE 108 U/L (45-117); BILIRUBIN,TOTAL 0.6 mg/dL (0.2-1.0); CREATININE 0.61 mg/dL (0.55-1.02)
[2020-02-28] MEDS: methylPREDNISolone SOD SUCC 125 MG/2 ML IVPush SCH (05:48)
[2020-02-28 06:49] VITALS: BP 102/61
[2020-02-28] MEDS: FERROUS SULFATE 325 MG TABLET PO SCH (08:46)
[2020-02-28] MEDS: SODIUM CHLORIDE FLUSH 10ML SYR IVF SCH ×2 (08:47→21:44)
[2020-02-28] MEDS: HEPARIN 5,000 UNITS/ML, 1ML SQ SCH ×3 (08:47→23:20)
[2020-02-28] MEDS: BUPRENORPHINE/NALOXONE 8-2MG SL SCH (08:48)
[2020-02-28] MEDS ORDERED: VANCOMYCIN PER PHARMACY MC PRN (10:30)
[2020-02-28] MEDS ORDERED: ZIPRASIDONE 20 MG INJ IM PRN (10:30)
[2020-02-28] MEDS ORDERED: PHARMACOKINETIC CONSULTATION MC ONE (11:00)
[2020-02-28] MEDS ORDERED: PHARMACOKINETIC MONITORING MC PRN (11:00)
[2020-02-28] MEDS ORDERED: VANCOMYCIN 1,600 MG in SODIUM CHLORIDE 0.9% 250 ML IV ONE (11:30)
[2020-02-28] MEDS: MEROPENEM 1 GM in SODIUM CHLORIDE 0.9% 100 ML IV SCH ×2 (11:37→21:43)
[2020-02-28 12:00] VITALS: BP 104/62
[2020-02-28] MEDS: LACTATED RINGERS 1,000 ML IV SCH (16:00)
[2020-02-28 19:19] VITALS: BP 102/61
[2020-02-28] MEDS: VANCOMYCIN 1,300 MG in SODIUM CHLORIDE 0.9% 250 ML IV SCH (23:19)
[2020-02-29 01:06] VITALS: BP 109/67
[2020-02-29] MEDS: MEROPENEM 1 GM in SODIUM CHLORIDE 0.9% 100 ML IV SCH ×3 (05:45→21:36)
[2020-02-29 07:42] VITALS: BP 97/57
[2020-02-29] MEDS: SODIUM CHLORIDE FLUSH 10ML SYR IVF SCH ×2 (08:51→21:39)
[2020-02-29] MEDS: LACTATED RINGERS 1,000 ML IV SCH ×3 (09:02→21:40)
[2020-02-29] MEDS: HEPARIN 5,000 UNITS/ML, 1ML SQ SCH ×3 (09:02→23:30)
[2020-02-29] MEDS: FERROUS SULFATE 325 MG TABLET PO SCH (09:02)
[2020-02-29 10:51] LABS: BASOPHILS % (AUTO) 0 % (0-1); EOSINOPHILS % (AUTO) 0 % (1-7); INTERNATIONAL NORMALIZED RATIO 1.18 (0.93-1.1); LYMPHOCYTES % (AUTO) 13 % (22-44); MEAN CORPUSCULAR HGB CONC 32.6 g/dL (32.4-35.8); MEAN PLATELET VOLUME 7.3 fL (7.4-10.4); MONOCYTES % (AUTO) 7 % (2-9); NEUTROPHILS % (AUTO) 79 % (42-75); PLATELET COUNT 230 x10^3/uL (130-400); PROTHROMBIN TIME 12.5 Seconds (9.6-11.5); RED BLOOD COUNT 3.97 x10^6/uL (3.82-5.3); RED CELL DISTRIBUTION WIDTH 19.2 % (9.6-15.2)
[2020-02-29] MEDS: BUPRENORPHINE/NALOXONE 8-2MG SL SCH (10:52)
[2020-02-29] MEDS: ONDANSETRON 2MG/ML, 2ML IVPush PRN (10:52)
[2020-02-29 10:54] LABS: ALANINE AMINOTRANSFERASE 36 U/L (12-78); ALBUMIN 2.6 g/dL (3.4-5.0); ANION GAP 7 mmol/L (5-15); CALCIUM 9.2 mg/dL (8.5-10.1); CHLORIDE 107 mmol/L (98-107); CREATININE 0.73 mg/dL (0.55-1.02)
[2020-02-29 10:57] LABS: ALKALINE PHOSPHATASE 100 U/L (45-117); BILIRUBIN,TOTAL 0.3 mg/dL (0.2-1.0); TOTAL PROTEIN 6.8 g/dL (6.4-8.2)
[2020-02-29 11:01] LABS: MD NO
[2020-02-29] MEDS: VANCOMYCIN 1,300 MG in SODIUM CHLORIDE 0.9% 250 ML IV SCH (11:44)
[2020-02-29 13:27] VITALS: BP 104/64
[2020-02-29 19:19] VITALS: BP 105/65
[2020-03-01] MEDS: VANCOMYCIN 1,300 MG in SODIUM CHLORIDE 0.9% 250 ML IV SCH ×2 (00:16→11:38)
[2020-03-01 01:16] VITALS: BP 103/64
[2020-03-01] MEDS: LACTATED RINGERS 1,000 ML IV SCH (04:15)
[2020-03-01] MEDS: MEROPENEM 1 GM in SODIUM CHLORIDE 0.9% 100 ML IV SCH ×3 (06:44→21:26)
[2020-03-01 07:15] VITALS: BP 100/61
[2020-03-01] MEDS: FERROUS SULFATE 325 MG TABLET PO SCH (09:00)
[2020-03-01] MEDS: SODIUM CHLORIDE FLUSH 10ML SYR IVF SCH ×2 (09:00→21:27)
[2020-03-01] MEDS: BUPRENORPHINE/NALOXONE 8-2MG SL SCH (09:00)
[2020-03-01] MEDS: HEPARIN 5,000 UNITS/ML, 1ML SQ SCH ×2 (09:01→15:30)
[2020-03-01] MEDS ORDERED: SODIUM CHLORIDE 0.9% 1,000 ML IV SCH (09:30)
[2020-03-01 09:43] LABS: BASOPHILS % (AUTO) 1 % (0-1); EOSINOPHILS % (AUTO) 1 % (1-7); LYMPHOCYTES % (AUTO) 15 % (22-44); MEAN CORPUSCULAR HEMOGLOBIN 26.2 pg (27.0-34.8); MEAN CORPUSCULAR HGB CONC 32.9 g/dL (32.4-35.8); MONOCYTES % (AUTO) 9 % (2-9); NEUTROPHILS % (AUTO) 75 % (42-75); PLATELET COUNT 222 x10^3/uL (130-400); RED BLOOD COUNT 3.99 x10^6/uL (3.82-5.3); RED CELL DISTRIBUTION WIDTH 19.3 % (9.6-15.2)
[2020-03-01 09:44] LABS: MD NO
[2020-03-01] MEDS: ONDANSETRON 2MG/ML, 2ML IVPush PRN (09:45)
[2020-03-01 09:50] LABS: ALANINE AMINOTRANSFERASE 29 U/L (12-78); ALBUMIN 2.7 g/dL (3.4-5.0); ANION GAP 4 mmol/L (5-15); CALCIUM 9.6 mg/dL (8.5-10.1); CHLORIDE 105 mmol/L (98-107); CREATININE 0.52 mg/dL (0.55-1.02)
[2020-03-01 09:52] LABS: ALKALINE PHOSPHATASE 98 U/L (45-117); BILIRUBIN,TOTAL 0.5 mg/dL (0.2-1.0)
[2020-03-01] MEDS ORDERED: PROPOFOL 10 MG/ML, 20ML ONE (10:10)
[2020-03-01 12:04] VITALS: BP 109/72
[2020-03-01] MEDS ORDERED: POTASSIUM CHLORIDE 20 MEQ TAB.ER.PRT PO ONE (13:30)
[2020-03-01] MEDS: ACETAMINOPHEN 325 MG TABLET PO PRN (18:17)
[2020-03-01 19:54] VITALS: BP 104/66
[2020-03-02] MEDS: VANCOMYCIN 1,300 MG in SODIUM CHLORIDE 0.9% 250 ML IV SCH (00:30)
[2020-03-02] MEDS: ACETAMINOPHEN 325 MG TABLET PO PRN ×3 (00:30→22:25)
[2020-03-02] MEDS: HEPARIN 5,000 UNITS/ML, 1ML SQ SCH ×4 (00:30→23:26)
[2020-03-02 00:36] VITALS: BP 110/72
[2020-03-02 05:50] LABS: BASOPHILS % (AUTO) 2 % (0-1); EOSINOPHILS % (AUTO) 2 % (1-7); LYMPHOCYTES % (AUTO) 20 % (22-44); MEAN CORPUSCULAR HEMOGLOBIN 26.4 pg (27.0-34.8); MEAN PLATELET VOLUME 7.4 fL (7.4-10.4); MONOCYTES % (AUTO) 7 % (2-9); NEUTROPHILS % (AUTO) 70 % (42-75); PLATELET COUNT 222 x10^3/uL (130-400); RED BLOOD COUNT 3.98 x10^6/uL (3.82-5.3); RED CELL DISTRIBUTION WIDTH 19.4 % (9.6-15.2)
[2020-03-02 05:51] LABS: MD NO
[2020-03-02 06:02] LABS: ALANINE AMINOTRANSFERASE 28 U/L (12-78); ALBUMIN 2.7 g/dL (3.4-5.0); ANION GAP 2 mmol/L (5-15); CALCIUM 9.3 mg/dL (8.5-10.1); CHLORIDE 105 mmol/L (98-107)
[2020-03-02 06:05] LABS: ALKALINE PHOSPHATASE 87 U/L (45-117); BILIRUBIN,TOTAL 0.5 mg/dL (0.2-1.0); CREATININE 0.57 mg/dL (0.55-1.02); TOTAL PROTEIN 6.7 g/dL (6.4-8.2)
[2020-03-02] MEDS: MEROPENEM 1 GM in SODIUM CHLORIDE 0.9% 100 ML IV SCH ×3 (06:22→22:04)
[2020-03-02 08:23] VITALS: BP 99/64
[2020-03-02] MEDS: SODIUM CHLORIDE FLUSH 10ML SYR IVF SCH ×2 (09:00→22:03)
[2020-03-02] MEDS: BUPRENORPHINE/NALOXONE 8-2MG SL SCH (09:07)
[2020-03-02] MEDS: FERROUS SULFATE 325 MG TABLET PO SCH (09:07)
[2020-03-02] MEDS: VANCOMYCIN 1,400 MG in SODIUM CHLORIDE 0.9% 250 ML IV SCH ×2 (10:51→23:26)
[2020-03-02 14:00] VITALS: BP 108/70
[2020-03-02] MEDS ORDERED: OMNIPAQUE 350 MG/ML, 75ML BOTTLE ONE (14:07)
[2020-03-02] MEDS: ONDANSETRON 2MG/ML, 2ML IVPush PRN (16:50)
[2020-03-02 19:55] VITALS: BP 109/72
[2020-03-03 01:18] VITALS: BP 110/60
[2020-03-03 06:05] LABS: BASOPHILS % (AUTO) 1 % (0-1); EOSINOPHILS % (AUTO) 2 % (1-7); LYMPHOCYTES % (AUTO) 15 % (22-44); MEAN CORPUSCULAR HEMOGLOBIN 26.2 pg (27.0-34.8); MEAN CORPUSCULAR HGB CONC 32.6 g/dL (32.4-35.8); MEAN PLATELET VOLUME 7.2 fL (7.4-10.4); MONOCYTES % (AUTO) 5 % (2-9); NEUTROPHILS % (AUTO) 77 % (42-75); PLATELET COUNT 233 x10^3/uL (130-400); RED BLOOD COUNT 4.17 x10^6/uL (3.82-5.3); RED CELL DISTRIBUTION WIDTH 19.4 % (9.6-15.2)
[2020-03-03 06:09] LABS: MD NO
[2020-03-03 06:19] LABS: ALBUMIN 2.6 g/dL (3.4-5.0); ANION GAP 3 mmol/L (5-15); CALCIUM 9.4 mg/dL (8.5-10.1); CHLORIDE 104 mmol/L (98-107)
[2020-03-03 06:23] LABS: ALANINE AMINOTRANSFERASE 24 U/L (12-78); ALKALINE PHOSPHATASE 91 U/L (45-117); BILIRUBIN,TOTAL 0.5 mg/dL (0.2-1.0); CREATININE 0.55 mg/dL (0.55-1.02); TOTAL PROTEIN 7.1 g/dL (6.4-8.2)
[2020-03-03] MEDS: MEROPENEM 1 GM in SODIUM CHLORIDE 0.9% 100 ML IV SCH ×3 (06:31→21:42)
[2020-03-03 06:44] VITALS: BP 117/81
[2020-03-03] MEDS ORDERED: NITROGLYCERIN 0.4 MG/SPRAY SL PRN (07:00)
[2020-03-03] MEDS ORDERED: NITROGLYCERIN 0.4 MG BOTTLE (25 TABS) SL PRN (07:00)
[2020-03-03] MEDS: FERROUS SULFATE 325 MG TABLET PO SCH (09:35)
[2020-03-03] MEDS: HEPARIN 5,000 UNITS/ML, 1ML SQ SCH ×3 (09:35→23:48)
[2020-03-03] MEDS: SODIUM CHLORIDE FLUSH 10ML SYR IVF SCH ×2 (09:36→21:00)
[2020-03-03] MEDS: ACETAMINOPHEN 325 MG TABLET PO PRN ×2 (09:48→17:59)
[2020-03-03] MEDS: BUPRENORPHINE/NALOXONE 8-2MG SL SCH (10:13)
[2020-03-03] MEDS ORDERED: FUROSEMIDE 20 MG/2 ML IV ONE (10:30)
[2020-03-03] MEDS ORDERED: FUROSEMIDE 20 MG TABLET PO ONE (11:00)
[2020-03-03] MEDS: VANCOMYCIN 1,400 MG in SODIUM CHLORIDE 0.9% 250 ML IV SCH (11:00)
[2020-03-03 13:37] VITALS: BP 96/68
[2020-03-03 19:29] VITALS: BP 111/73
[2020-03-04 00:53] VITALS: BP 105/76
[2020-03-04] MEDS: MEROPENEM 1 GM in SODIUM CHLORIDE 0.9% 100 ML IV SCH ×3 (05:44→22:00)
[2020-03-04] MEDS: HEPARIN 5,000 UNITS/ML, 1ML SQ SCH ×3 (08:06→23:29)
[2020-03-04 08:26] VITALS: BP 104/69
[2020-03-04] MEDS ORDERED: SODIUM CHLORIDE 0.9% 1,000 ML IV SCH (08:30)
[2020-03-04] MEDS: SODIUM CHLORIDE FLUSH 10ML SYR IVF SCH ×2 (08:49→22:12)
[2020-03-04] MEDS: FERROUS SULFATE 325 MG TABLET PO SCH (08:51)
[2020-03-04] MEDS: BUPRENORPHINE/NALOXONE 8-2MG SL SCH (09:03)
[2020-03-04] MEDS: ACETAMINOPHEN 325 MG TABLET PO PRN (09:04)
[2020-03-04] MEDS: ONDANSETRON 2MG/ML, 2ML IVPush PRN (09:46)
[2020-03-04 12:16] VITALS: BP 124/79
[2020-03-04] MEDS ORDERED: LIDOCAINE 1%, 20ML ONE (19:05)
[2020-03-04] MEDS ORDERED: BUPIVACAINE/PF 0.25% ONE (19:05)
[2020-03-04] MEDS ORDERED: EPINEPHRINE 1 MG/ML, 1ML ONE (19:05)
[2020-03-04] MEDS ORDERED: MIDAZOLAM 1 MG/ML, 2ML ONE (20:00)
[2020-03-04] MEDS ORDERED: FENTANYL PF 250 MCG/5ML ONE (20:01)
[2020-03-04] MEDS ORDERED: FENTANYL PF 100 MCG/2ML IV PRN (20:30)
[2020-03-04] MEDS ORDERED: morphine SULFATE 10 MG/ML, 1ML IVPush PRN (20:30)
[2020-03-04] MEDS ORDERED: HALOPERIDOL 5 MG/ML IV PRN (20:30)
[2020-03-04] MEDS ORDERED: OXYcodone 5 MG/5 ML ORAL.SOL UDC PO PRN (20:30)
[2020-03-04] MEDS ORDERED: PROMETHAZINE 25 MG/ML, 1ML IVPush PRN (20:30)
[2020-03-04] MEDS ORDERED: ACETAMINOPHEN 325 MG TABLET PO PRN (20:30)
[2020-03-04] MEDS ORDERED: MEPERIDINE/PF 25MG/0.5ML IVPush PRN (20:30)
[2020-03-04] MEDS ORDERED: HYDROmorphone 1 MG/ML, 1ML INJ IVPush PRN (20:30)
[2020-03-04] MEDS ORDERED: hydrALAzine 20 MG/ML, 1ML IV PRN (20:30)
[2020-03-04] MEDS ORDERED: LABETALOL 5MG/ML, 20ML IV PRN (20:30)
[2020-03-04] MEDS ORDERED: GLYCOPYRROLATE 0.2MG/1ML, 5ML ONE (20:37)
[2020-03-04] MEDS ORDERED: ROCURONIUM 10MG/ML,5ML ONE (20:37)
[2020-03-04] MEDS ORDERED: DEXAMETHASONE 4 MG/ML, 1ML ONE (20:37)
[2020-03-04] MEDS ORDERED: PROPOFOL 10 MG/ML, 20ML ONE (20:37)
[2020-03-04] MEDS ORDERED: NEOSTIGMINE 1 MG/ML, 10ML ONE (20:37)
[2020-03-04 21:36] VITALS: BP 108/65
[2020-03-04] MEDS ORDERED: CHLORHEXIDINE GLUCONATE MOUTHWASH 0.12%, 473ML MM SCH (22:00)
[2020-03-05 00:13] LABS: MICROSCOPIC INDICATED
[2020-03-05 01:02] VITALS: BP 111/75
[2020-03-05] MEDS: MEROPENEM 1 GM in SODIUM CHLORIDE 0.9% 100 ML IV SCH (05:35)
[2020-03-05 05:41] LABS: BASOPHILS % (AUTO) 0 % (0-1); EOSINOPHILS % (AUTO) 0 % (1-7); LYMPHOCYTES % (AUTO) 8 % (22-44); MEAN CORPUSCULAR HEMOGLOBIN 26.6 pg (27.0-34.8); MEAN CORPUSCULAR HGB CONC 33.5 g/dL (32.4-35.8); MEAN PLATELET VOLUME 7.7 fL (7.4-10.4); MONOCYTES % (AUTO) 3 % (2-9); NEUTROPHILS % (AUTO) 89 % (42-75); PLATELET COUNT 245 x10^3/uL (130-400); RED BLOOD COUNT 3.97 x10^6/uL (3.82-5.3); RED CELL DISTRIBUTION WIDTH 19.7 % (9.6-15.2)
[2020-03-05 05:44] LABS: MD NO
[2020-03-05 05:50] LABS: CHLORIDE 103 mmol/L (98-107)
[2020-03-05 05:59] LABS: ALANINE AMINOTRANSFERASE 21 U/L (12-78); ALKALINE PHOSPHATASE 94 U/L (45-117); ANION GAP 4 mmol/L (5-15); BILIRUBIN,TOTAL 0.6 mg/dL (0.2-1.0); CALCIUM 9.8 mg/dL (8.5-10.1); CREATININE 0.54 mg/dL (0.55-1.02); TOTAL PROTEIN 7.6 g/dL (6.4-8.2)
[2020-03-05] MEDS: HEPARIN 5,000 UNITS/ML, 1ML SQ SCH ×3 (07:30→21:19)
[2020-03-05 07:39] VITALS: BP 105/66
[2020-03-05] MEDS: BUPRENORPHINE/NALOXONE 8-2MG SL SCH (09:01)
[2020-03-05] MEDS: FERROUS SULFATE 325 MG TABLET PO SCH (09:01)
[2020-03-05] MEDS: SODIUM CHLORIDE FLUSH 10ML SYR IVF SCH ×2 (09:01→21:18)
[2020-03-05] MEDS: DOXYCYCLINE 100MG TABLET PO SCH ×2 (11:25→21:18)
[2020-03-05] MEDS ORDERED: CEFTRIAXONE PMX 2GM/50ML 50 ML IVPB SCH (11:30)
[2020-03-05 12:38] VITALS: BP 112/73
[2020-03-05 21:31] VITALS: BP 113/73
[2020-03-05] MEDS: CHLORHEXIDINE 15 ML UDC MM SCH (23:30)
[2020-03-05] MEDS: CEFTRIAXONE PMX 2GM/50ML 50 ML IVPB SCH (23:30)
[2020-03-06 02:42] VITALS: BP 128/72
[2020-03-06 06:57] VITALS: BP 116/72
[2020-03-06] MEDS: ACETAMINOPHEN 325 MG TABLET PO PRN ×2 (08:08→17:50)
[2020-03-06] MEDS: SODIUM CHLORIDE FLUSH 10ML SYR IVF SCH ×2 (08:08→21:59)
[2020-03-06] MEDS: HEPARIN 5,000 UNITS/ML, 1ML SQ SCH ×3 (08:08→23:34)
[2020-03-06] MEDS: DOXYCYCLINE 100MG TABLET PO SCH ×2 (08:43→21:59)
[2020-03-06] MEDS: CHLORHEXIDINE 15 ML UDC MM SCH ×2 (08:43→21:58)
[2020-03-06] MEDS: BUPRENORPHINE/NALOXONE 8-2MG SL SCH (08:44)
[2020-03-06] MEDS: FERROUS SULFATE 325 MG TABLET PO SCH (08:45)
[2020-03-06] MEDS: ONDANSETRON 2MG/ML, 2ML IVPush PRN (11:35)
[2020-03-06] MEDS: CEFTRIAXONE PMX 2GM/50ML 50 ML IVPB SCH ×2 (11:35→23:34)
[2020-03-06 13:47] VITALS: BP 108/68
[2020-03-06 22:01] VITALS: BP 103/70
[2020-03-07 03:13] LABS: ANION GAP 5 mmol/L (5-15); CALCIUM 9.4 mg/dL (8.5-10.1); CHLORIDE 101 mmol/L (98-107); CREATININE 0.48 mg/dL (0.55-1.02)
[2020-03-07 03:18] LABS: BASOPHILS % (AUTO) 1 % (0-1); EOSINOPHILS % (AUTO) 2 % (1-7); LYMPHOCYTES % (AUTO) 15 % (22-44); MEAN CORPUSCULAR HGB CONC 33.4 g/dL (32.4-35.8); MEAN PLATELET VOLUME 7.6 fL (7.4-10.4); MONOCYTES % (AUTO) 8 % (2-9); NEUTROPHILS % (AUTO) 74 % (42-75); PLATELET COUNT 195 x10^3/uL (130-400); RED BLOOD COUNT 3.76 x10^6/uL (3.82-5.3); RED CELL DISTRIBUTION WIDTH 20.3 % (9.6-15.2)
[2020-03-07 03:22] LABS: MD NO
[2020-03-07 03:25] LABS: HCT (SEDRATE) 30.4 % (34.6-47.8)
[2020-03-07] MEDS: ONDANSETRON 2MG/ML, 2ML IVPush PRN (07:54)
[2020-03-07] MEDS: HEPARIN 5,000 UNITS/ML, 1ML SQ SCH ×3 (07:54→23:29)
[2020-03-07] MEDS: ACETAMINOPHEN 325 MG TABLET PO PRN ×2 (07:54→15:29)
[2020-03-07 08:00] VITALS: BP 124/70
[2020-03-07] MEDS: BUPRENORPHINE/NALOXONE 8-2MG SL SCH (08:54)
[2020-03-07] MEDS: DOXYCYCLINE 100MG TABLET PO SCH ×2 (08:55→21:57)
[2020-03-07] MEDS: CHLORHEXIDINE 15 ML UDC MM SCH ×2 (08:55→21:56)
[2020-03-07] MEDS: SODIUM CHLORIDE FLUSH 10ML SYR IVF SCH ×2 (08:56→21:57)
[2020-03-07] MEDS: CEFTRIAXONE PMX 2GM/50ML 50 ML IVPB SCH ×2 (11:12→23:30)
[2020-03-07 12:48] VITALS: BP 117/79
[2020-03-07 18:59] VITALS: BP 108/71
[2020-03-07] MEDS: SENNA/DOCUSATE TABLET PO SCH (21:56)
[2020-03-08] MEDS: ACETAMINOPHEN 325 MG TABLET PO PRN ×4 (04:08→22:33)
[2020-03-08 04:13] VITALS: BP 109/66
[2020-03-08 04:44] LABS: BASOPHILS % (AUTO) 1 % (0-1); EOSINOPHILS % (AUTO) 3 % (1-7); HCT (SEDRATE) 28.1 % (34.6-47.8); LYMPHOCYTES % (AUTO) 14 % (22-44); MEAN CORPUSCULAR HGB CONC 33.3 g/dL (32.4-35.8); MEAN PLATELET VOLUME 7.4 fL (7.4-10.4); MONOCYTES % (AUTO) 8 % (2-9); NEUTROPHILS % (AUTO) 75 % (42-75); PLATELET COUNT 183 x10^3/uL (130-400); RED BLOOD COUNT 3.47 x10^6/uL (3.82-5.3); RED CELL DISTRIBUTION WIDTH 20.1 % (9.6-15.2)
[2020-03-08 04:51] LABS: MD NO
[2020-03-08 04:53] LABS: ALANINE AMINOTRANSFERASE 23 U/L (12-78); ALBUMIN 2.8 g/dL (3.4-5.0); ANION GAP 6 mmol/L (5-15); CALCIUM 9.4 mg/dL (8.5-10.1); CHLORIDE 100 mmol/L (98-107); CREATININE 0.52 mg/dL (0.55-1.02)
[2020-03-08 05:00] LABS: ALKALINE PHOSPHATASE 84 U/L (45-117); BILIRUBIN,TOTAL 0.3 mg/dL (0.2-1.0); TOTAL PROTEIN 7.1 g/dL (6.4-8.2)
[2020-03-08 07:25] VITALS: BP 115/74
[2020-03-08] MEDS: HEPARIN 5,000 UNITS/ML, 1ML SQ SCH ×2 (08:38→15:31)
[2020-03-08] MEDS: DOXYCYCLINE 100MG TABLET PO SCH ×2 (08:38→19:55)
[2020-03-08] MEDS: CHLORHEXIDINE 15 ML UDC MM SCH ×2 (08:38→19:55)
[2020-03-08] MEDS: SODIUM CHLORIDE FLUSH 10ML SYR IVF SCH ×2 (08:38→19:56)
[2020-03-08] MEDS: BUPRENORPHINE/NALOXONE 8-2MG SL SCH (08:39)
[2020-03-08] MEDS ORDERED: MAALOX/HYOSCYAMINE/LIDOCAINE 45 ML BTL PO PRN (11:30)
[2020-03-08] MEDS: CEFTRIAXONE PMX 2GM/50ML 50 ML IVPB SCH (11:49)
[2020-03-08 12:27] VITALS: BP 99/64
[2020-03-08 14:15] VITALS: BP_SYST 120; BP_DIAS 61; BP_DIAS 81
[2020-03-08 19:43] VITALS: BP 112/70
[2020-03-08] MEDS: SENNA/DOCUSATE TABLET PO SCH (19:56)
[2020-03-09] MEDS: HEPARIN 5,000 UNITS/ML, 1ML SQ SCH ×4 (00:02→23:52)
[2020-03-09] MEDS: CEFTRIAXONE PMX 2GM/50ML 50 ML IVPB SCH ×3 (00:02→23:52)
[2020-03-09 02:08] VITALS: BP 105/66
[2020-03-09 07:22] VITALS: BP 119/77
[2020-03-09] MEDS: DOXYCYCLINE 100MG TABLET PO SCH ×2 (07:54→21:31)
[2020-03-09] MEDS: SODIUM CHLORIDE FLUSH 10ML SYR IVF SCH ×2 (07:54→21:31)
[2020-03-09] MEDS: CHLORHEXIDINE 15 ML UDC MM SCH ×2 (07:54→21:38)
[2020-03-09] MEDS: FERROUS SULFATE 325 MG TABLET PO SCH (07:54)
[2020-03-09] MEDS: BUPRENORPHINE/NALOXONE 8-2MG SL SCH (07:56)
[2020-03-09] MEDS: ACETAMINOPHEN 325 MG TABLET PO PRN ×2 (08:02→15:41)
[2020-03-09 14:30] VITALS: BP 102/66
[2020-03-09 19:27] VITALS: BP 118/75
[2020-03-09] MEDS: SENNA/DOCUSATE TABLET PO SCH (21:38)
[2020-03-10] MEDS: ACETAMINOPHEN 325 MG TABLET PO PRN ×2 (00:03→11:15)
[2020-03-10 00:42] VITALS: BP 116/74
[2020-03-10] MEDS: BUPRENORPHINE/NALOXONE 2-0.5MG SL SCH (09:20)
[2020-03-10] MEDS: SODIUM CHLORIDE FLUSH 10ML SYR IVF SCH ×2 (09:20→21:00)
[2020-03-10] MEDS: DOXYCYCLINE 100MG TABLET PO SCH ×2 (09:20→21:50)
[2020-03-10] MEDS: ENOXAPARIN 40 MG/0.4 ML SQ SCH (09:20)
[2020-03-10] MEDS: CHLORHEXIDINE 15 ML UDC MM SCH ×2 (09:20→21:49)
[2020-03-10 09:37] VITALS: BP 123/79
[2020-03-10] MEDS: CEFTRIAXONE PMX 2GM/50ML 50 ML IVPB SCH (11:15)
[2020-03-10 15:22] VITALS: BP 113/72
[2020-03-10 19:57] VITALS: BP 115/79
[2020-03-10] MEDS: MELATONIN 5 MG TABLET PO SCH ×2 (21:00→21:50)
[2020-03-10] MEDS: SENNA/DOCUSATE TABLET PO SCH (21:00)
[2020-03-11 00:19] VITALS: BP 140/76
[2020-03-11] MEDS: CEFTRIAXONE PMX 2GM/50ML 50 ML IVPB SCH ×3 (00:21→23:38)
[2020-03-11] MEDS: ACETAMINOPHEN 325 MG TABLET PO PRN ×3 (00:21→21:36)
[2020-03-11 07:23] VITALS: BP 121/79
[2020-03-11] MEDS: CHLORHEXIDINE 15 ML UDC MM SCH ×2 (07:53→21:36)
[2020-03-11] MEDS: ONDANSETRON 2MG/ML, 2ML IVPush PRN (07:53)
[2020-03-11] MEDS: ENOXAPARIN 40 MG/0.4 ML SQ SCH (07:53)
[2020-03-11] MEDS: DOXYCYCLINE 100MG TABLET PO SCH ×2 (07:53→21:36)
[2020-03-11] MEDS: FERROUS SULFATE 325 MG TABLET PO SCH ×2 (07:54→08:00)
[2020-03-11] MEDS: BUPRENORPHINE/NALOXONE 2-0.5MG SL SCH (07:54)
[2020-03-11] MEDS: SODIUM CHLORIDE FLUSH 10ML SYR IVF SCH ×2 (07:54→21:00)
[2020-03-11 12:45] VITALS: BP 108/70
[2020-03-11 19:22] VITALS: BP 104/67
[2020-03-11] MEDS: MELATONIN 5 MG TABLET PO SCH (21:36)
[2020-03-12] MEDS ORDERED: BUTALB/APAP/CAFFEINE 50MG/325MG/40MG PO ONE
[2020-03-12 00:10] VITALS: BP 107/71
[2020-03-12] MEDS: ACETAMINOPHEN 325 MG TABLET PO PRN (04:48)
[2020-03-12 05:09] LABS: CREATININE 0.59 mg/dL (0.55-1.02)
[2020-03-12 07:03] VITALS: BP 101/66
[2020-03-12] MEDS: BUTALB/APAP/CAFFEINE 50MG/325MG/40MG PO PRN ×3 (07:32→19:03)
[2020-03-12] MEDS: CHLORHEXIDINE 15 ML UDC MM SCH ×2 (08:23→21:20)
[2020-03-12] MEDS: DOXYCYCLINE 100MG TABLET PO SCH ×2 (08:23→21:20)
[2020-03-12] MEDS: PRAMIPEXOLE 0.5MG TABLET PO SCH ×3 (08:24→21:20)
[2020-03-12] MEDS: ENOXAPARIN 40 MG/0.4 ML SQ SCH (08:24)
[2020-03-12] MEDS: LIDODERM 5% PATCH TD SCH (08:25)
[2020-03-12] MEDS: SODIUM CHLORIDE FLUSH 10ML SYR IVF SCH ×2 (08:25→21:00)
[2020-03-12] MEDS: CEFTRIAXONE PMX 2GM/50ML 50 ML IVPB SCH ×2 (11:24→23:56)
[2020-03-12 11:33] VITALS: BP 124/79
[2020-03-12 13:44] VITALS: BP 123/77
[2020-03-12] MEDS: ONDANSETRON 2MG/ML, 2ML IVPush PRN ×2 (14:59→21:33)
[2020-03-12] MEDS: METHADONE 10 MG TABLET PO SCH (17:17)
[2020-03-12] MEDS: LIDODERM REMOVE PATCH NOTE XX SCH (20:00)
[2020-03-12 21:16] VITALS: BP 123/82
[2020-03-12] MEDS: MELATONIN 5 MG TABLET PO SCH (21:20)
[2020-03-13 00:57] VITALS: BP 118/67
[2020-03-13] MEDS: METHADONE 10 MG TABLET PO SCH ×3 (00:58→16:51)
[2020-03-13] MEDS: ONDANSETRON 2MG/ML, 2ML IVPush PRN ×3 (03:11→20:43)
[2020-03-13] MEDS: BUTALB/APAP/CAFFEINE 50MG/325MG/40MG PO PRN ×5 (03:23→22:18)
[2020-03-13 08:45] VITALS: BP 127/76
[2020-03-13] MEDS: PRAMIPEXOLE 0.5MG TABLET PO SCH ×3 (08:50→20:45)
[2020-03-13] MEDS: FERROUS SULFATE 325 MG TABLET PO SCH (08:50)
[2020-03-13] MEDS: CHLORHEXIDINE 15 ML UDC MM SCH ×2 (08:50→21:01)
[2020-03-13] MEDS: DOXYCYCLINE 100MG TABLET PO SCH ×2 (08:50→20:45)
[2020-03-13] MEDS: SODIUM CHLORIDE FLUSH 10ML SYR IVF SCH ×2 (08:51→20:50)
[2020-03-13] MEDS: LIDODERM 5% PATCH TD SCH (08:52)
[2020-03-13] MEDS: ENOXAPARIN 40 MG/0.4 ML SQ SCH (08:52)
[2020-03-13] MEDS: CEFTRIAXONE PMX 2GM/50ML 50 ML IVPB SCH ×2 (11:52→23:18)
[2020-03-13 13:53] VITALS: BP 110/67
[2020-03-13] MEDS: LIDODERM REMOVE PATCH NOTE XX SCH ×2 (20:00→20:55)
[2020-03-13 20:30] VITALS: BP 109/69
[2020-03-13] MEDS: MELATONIN 5 MG TABLET PO SCH (22:18)
[2020-03-14 00:53] VITALS: BP 116/72
[2020-03-14] MEDS: METHADONE 10 MG TABLET PO SCH ×3 (00:56→16:33)
[2020-03-14] MEDS: BUTALB/APAP/CAFFEINE 50MG/325MG/40MG PO PRN ×5 (02:50→22:04)
[2020-03-14] MEDS: ONDANSETRON 2MG/ML, 2ML IVPush PRN ×2 (02:54→07:17)
[2020-03-14 07:08] VITALS: BP 119/69
[2020-03-14] MEDS: SODIUM CHLORIDE FLUSH 10ML SYR IVF SCH ×2 (09:00→20:56)
[2020-03-14] MEDS: DOXYCYCLINE 100MG TABLET PO SCH ×2 (09:09→20:57)
[2020-03-14] MEDS: PRAMIPEXOLE 0.5MG TABLET PO SCH ×3 (09:09→20:57)
[2020-03-14] MEDS: LIDODERM 5% PATCH TD SCH (09:10)
[2020-03-14] MEDS: CHLORHEXIDINE 15 ML UDC MM SCH ×2 (09:10→20:57)
[2020-03-14] MEDS: ENOXAPARIN 40 MG/0.4 ML SQ SCH (09:11)
[2020-03-14] MEDS: METHYL SALICYLATE/MENTHOL CRM 85GM TP SCH ×3 (11:01→21:09)
[2020-03-14] MEDS: CEFTRIAXONE PMX 2GM/50ML 50 ML IVPB SCH ×2 (11:01→23:24)
[2020-03-14] MEDS: ACETAMINOPHEN 325 MG TABLET PO PRN (11:09)
[2020-03-14 13:00] VITALS: BP 122/78
[2020-03-14 19:36] VITALS: BP 142/85
[2020-03-14] MEDS: LIDODERM REMOVE PATCH NOTE XX SCH (20:00)
[2020-03-14] MEDS: MELATONIN 5 MG TABLET PO SCH (22:04)
[2020-03-15 00:31] VITALS: BP 107/71
[2020-03-15] MEDS: METHADONE 10 MG TABLET PO SCH ×3 (00:55→16:19)
[2020-03-15] MEDS: BUTALB/APAP/CAFFEINE 50MG/325MG/40MG PO PRN ×5 (04:50→22:15)
[2020-03-15] MEDS: METHYL SALICYLATE/MENTHOL CRM 85GM TP SCH ×4 (05:09→21:03)
[2020-03-15 05:21] LABS: HCT (SEDRATE) 27.7 % (34.6-47.8)
[2020-03-15 05:28] LABS: BASOPHILS % (AUTO) 0 % (0-1); EOSINOPHILS % (AUTO) 2 % (1-7); LYMPHOCYTES % (AUTO) 10 % (22-44); MEAN CORPUSCULAR HEMOGLOBIN 27.1 pg (27.0-34.8); MEAN CORPUSCULAR HGB CONC 33.2 g/dL (32.4-35.8); MEAN PLATELET VOLUME 7.4 fL (7.4-10.4); MONOCYTES % (AUTO) 5 % (2-9); NEUTROPHILS % (AUTO) 84 % (42-75); PLATELET COUNT 202 x10^3/uL (130-400); RED BLOOD COUNT 3.44 x10^6/uL (3.82-5.3); RED CELL DISTRIBUTION WIDTH 22.2 % (9.6-15.2)
[2020-03-15 05:36] LABS: CHLORIDE 104 mmol/L (98-107)
[2020-03-15 05:49] LABS: ALANINE AMINOTRANSFERASE 20 U/L (12-78); ALBUMIN 2.9 g/dL (3.4-5.0); ALKALINE PHOSPHATASE 80 U/L (45-117); ANION GAP 7 mmol/L (5-15); BILIRUBIN,TOTAL 0.5 mg/dL (0.2-1.0); CALCIUM 9.4 mg/dL (8.5-10.1); CREATININE 0.59 mg/dL (0.55-1.02); TOTAL PROTEIN 7.2 g/dL (6.4-8.2)
[2020-03-15 06:10] LABS: MD SCAN
[2020-03-15 06:54] VITALS: BP 103/68
[2020-03-15] MEDS: CHLORHEXIDINE 15 ML UDC MM SCH ×2 (08:50→21:02)
[2020-03-15] MEDS: LIDODERM 5% PATCH TD SCH (08:50)
[2020-03-15] MEDS: DOXYCYCLINE 100MG TABLET PO SCH ×2 (08:51→21:03)
[2020-03-15] MEDS: PRAMIPEXOLE 0.5MG TABLET PO SCH ×3 (08:51→21:03)
[2020-03-15] MEDS: FERROUS SULFATE 325 MG TABLET PO SCH (08:51)
[2020-03-15] MEDS: GABAPENTIN 300 MG CAPSULE PO SCH ×3 (08:53→21:02)
[2020-03-15] MEDS: SODIUM CHLORIDE FLUSH 10ML SYR IVF SCH ×2 (08:53→21:03)
[2020-03-15] MEDS: ENOXAPARIN 40 MG/0.4 ML SQ SCH (08:54)
[2020-03-15] MEDS: ONDANSETRON 2MG/ML, 2ML IVPush PRN ×3 (08:57→22:16)
[2020-03-15] MEDS: CEFTRIAXONE PMX 2GM/50ML 50 ML IVPB SCH ×2 (11:00→23:14)
[2020-03-15 12:43] VITALS: BP 114/68
[2020-03-15 19:01] VITALS: BP 122/74
[2020-03-15] MEDS: LIDODERM REMOVE PATCH NOTE XX SCH (21:04)
[2020-03-15] MEDS: MELATONIN 5 MG TABLET PO SCH (22:15)
[2020-03-16] MEDS: METHADONE 10 MG TABLET PO SCH ×3 (00:58→16:25)
[2020-03-16 01:24] VITALS: BP 114/70
[2020-03-16] MEDS: BUTALB/APAP/CAFFEINE 50MG/325MG/40MG PO PRN ×4 (06:07→20:34)
[2020-03-16] MEDS: METHYL SALICYLATE/MENTHOL CRM 85GM TP SCH ×4 (06:07→20:35)
[2020-03-16 06:50] VITALS: BP 107/66
[2020-03-16] MEDS: DOXYCYCLINE 100MG TABLET PO SCH ×2 (08:57→20:35)
[2020-03-16] MEDS: GABAPENTIN 300 MG CAPSULE PO SCH ×3 (08:57→20:35)
[2020-03-16] MEDS: CHLORHEXIDINE 15 ML UDC MM SCH ×2 (08:57→20:35)
[2020-03-16] MEDS: ENOXAPARIN 40 MG/0.4 ML SQ SCH (08:58)
[2020-03-16] MEDS: LIDODERM 5% PATCH TD SCH (08:58)
[2020-03-16] MEDS: PRAMIPEXOLE 0.5MG TABLET PO SCH ×3 (08:58→20:35)
[2020-03-16] MEDS: SODIUM CHLORIDE FLUSH 10ML SYR IVF SCH ×2 (08:58→20:36)
[2020-03-16] MEDS: CEFTRIAXONE PMX 2GM/50ML 50 ML IVPB SCH ×2 (10:53→23:19)
[2020-03-16 13:30] VITALS: BP 124/80
[2020-03-16 19:09] VITALS: BP 131/80
[2020-03-16] MEDS: LIDODERM REMOVE PATCH NOTE XX SCH (20:37)
[2020-03-16] MEDS: MELATONIN 5 MG TABLET PO SCH (23:19)
[2020-03-17 00:36] VITALS: BP 117/70
[2020-03-17] MEDS: METHADONE 10 MG TABLET PO SCH ×2 (00:55→09:05)
[2020-03-17] MEDS: BUTALB/APAP/CAFFEINE 50MG/325MG/40MG PO PRN ×2 (00:55→06:18)
[2020-03-17] MEDS: METHYL SALICYLATE/MENTHOL CRM 85GM TP SCH ×2 (06:18→11:00)
[2020-03-17] MEDS ORDERED: DOXY100T PO (08:09)
[2020-03-17] MEDS ORDERED: MELA5TAB14 PO (08:09)
[2020-03-17] MEDS ORDERED: CEFT2FRO2 IV (08:09)
[2020-03-17] MEDS ORDERED: LIDO700A20 TD (08:09)
[2020-03-17] MEDS ORDERED: BUTA-177 PO (08:09)
[2020-03-17] MEDS ORDERED: FERR-51 PO (08:09)
[2020-03-17] MEDS ORDERED: MENTHOL TP (08:09)
[2020-03-17] MEDS ORDERED: METHYL SALICYLATE TP (08:09)
[2020-03-17] MEDS ORDERED: GABA300C PO (08:09)
[2020-03-17] MEDS ORDERED: METH10TA2 PO (08:09)
[2020-03-17] MEDS ORDERED: ENOX40SY4 SQ (08:09)
[2020-03-17] MEDS ORDERED: PRAM0.5T5 PO (08:09)
[2020-03-17] MEDS ORDERED: CHLO473M MM (08:09)
[2020-03-17 08:18] VITALS: BP 123/73
[2020-03-17] MEDS: SODIUM CHLORIDE FLUSH 10ML SYR IVF SCH (09:00)
[2020-03-17] MEDS: FERROUS SULFATE 325 MG TABLET PO SCH (09:04)
[2020-03-17] MEDS: CHLORHEXIDINE 15 ML UDC MM SCH (09:05)
[2020-03-17] MEDS: LIDODERM 5% PATCH TD SCH (09:05)
[2020-03-17] MEDS: PRAMIPEXOLE 0.5MG TABLET PO SCH (09:05)
[2020-03-17] MEDS: GABAPENTIN 300 MG CAPSULE PO SCH (09:05)
[2020-03-17] MEDS: DOXYCYCLINE 100MG TABLET PO SCH (09:06)
[2020-03-17] MEDS: ENOXAPARIN 40 MG/0.4 ML SQ SCH (09:08)
[2020-03-17] MEDS: CEFTRIAXONE PMX 2GM/50ML 50 ML IVPB SCH (11:15)
== END 2020-03-17 13:03 | disposition home or self-care (01) | DRG 288 ==
LOC: ED 10:10 → EDIP 12:02 → 5SO 15:51 → 4WST 03-04 08:07 → 5SO 03-04 08:09 → 4WST 03-04 08:16 → 5SO 03-04 08:17 → 3N 03-05 17:43
PROVIDERS: ADMIT Family Medicine; ATTEND Hospitalist
PROC: 02HV33Z Insertion of Infusion Device into Superior Vena Cava, Percutaneous Approach (ICD-10-PCS; 2020-03-03)
PROC: B5181ZA Fluoroscopy of Superior Vena Cava using Low Osmolar Contrast, Guidance (ICD-10-PCS; 2020-03-03)
PROC: B548ZZA Ultrasonography of Superior Vena Cava, Guidance (ICD-10-PCS; 2020-03-03)
PROC: 0CDWXZ0 Extraction of Upper Tooth, Single, External Approach (ICD-10-PCS; principal; 2020-03-04 19:30)
PROC: 5A1935Z Respiratory Ventilation, Less than 24 Consecutive Hours (ICD-10-PCS; 2020-03-15)
DX: I33.0 Acute and subacute infective endocarditis (principal); G93.41 Metabolic encephalopathy; K85.90 Acute pancreatitis without necrosis or infection, unspecified; N17.9 Acute kidney failure, unspecified; J98.11 Atelectasis; I31.3 Pericardial effusion (noninflammatory); E87.1 Hypo-osmolality and hyponatremia; I05.9 Rheumatic mitral valve disease, unspecified; K04.7 Periapical abscess without sinus; Z20.822 Contact with and (suspected) exposure to COVID-19; M10.9 Gout, unspecified; K02.9 Dental caries, unspecified; G25.81 Restless legs syndrome; F90.9 Attention-deficit hyperactivity disorder, unspecified type; F41.9 Anxiety disorder, unspecified; F19.10 Other psychoactive substance abuse, uncomplicated; F17.210 Nicotine dependence, cigarettes, uncomplicated; E86.9 Volume depletion, unspecified; D63.8 Anemia in other chronic diseases classified elsewhere; G62.9 Polyneuropathy, unspecified; D50.9 Iron deficiency anemia, unspecified; Z79.891 Long term (current) use of opiate analgesic; Z83.49 Family history of other endocrine, nutritional and metabolic diseases; Z86.73 Personal history of transient ischemic attack (TIA), and cerebral infarction without residual deficits; Z87.01 Personal history of pneumonia (recurrent); Z90.721 Acquired absence of ovaries, unilateral
CPT/HCPCS: 36415; 70100; 73564; 84145; 87449; 87806; 96361; 96374; 99285; J0572; J0574; J3490; 36573; 70487; 70551; 71045; 71275; 74176; 76700; 80048; 80053; 80202; 80299; 80307; 80320; 80329; 81001; 81025; 82140; 82565; 83540; 83550; 83605; 83690; 83735; 84100; 84443; 85025; 85379; 85610; 85651; 86140; 86611; 86638; 86705; 86706; 86713; 86738; 86803; 87040; 87081; 87086; 87340; 87471; 87581; 87635; 87798; 93005; 93306; 93312; 93321; 93325; G0378; J0171; J0696; J1100; J1644; J1650; J2185; J2250; J2405; J2704; J2710; J3010; J3370; J7060; Q9967; C1751; G0475; G0480; J1630; J2060; J2930; J7030; J7050; J7120

== ENCOUNTER 2020-03-23 10:53 | Emergency (ER) | payer MEDICAID ==
[~2020-03-23] VITALS: Ht 172.7 cm; Wt 69.0 kg
[~2020-03-23 10:53] MED LIST changes: +BUTA-177 PO; +CEFT2FRO2 IV; +CHLO473M MM; +ENOX40SY4 SQ; +FERR-51 PO; +GABA300C PO; +LIDO700A20 TD; +MELA5TAB14 PO; +MENTHOL TP; +METH10TA2 PO; +METHYL SALICYLATE TP; +PRAM0.5T5 PO
--- NOTE | 2020-03-23 11:44 | NUR ---
PT BIB EMS FROM [facility] FOR INCREASED PRESSURE AND BLACK SPOTS IN HER LEFT EYE. PT WAS RECENTLY HERE X1 MO FOR ENCEPHALOPATHY, ENDOCARDITIS, AND MITRAL VALVE REGURG. PT WAS DISCHARGED 1WK AGO FROM [facility]. PT STATES LEFT EYE PRESSURE AND BLACK SPOTS STARTED "ABOUT 1 WK AGO". MONITORS CONNECTED. CALL LIGHT W/IN REACH.
--- NOTE | 2020-03-23 11:53 | NUR ---
PT AMBULATED TO BATHROOM W/STEADY GAIT.
--- NOTE | 2020-03-23 12:04 | NUR ---
BACK IN RM FROM BATHROOM. PT RECONNECTED TO MONITORS. SITTING IN CHAIR TALKING ON PHONE. STATES "AM I GONNA BE OUT OF HERE BY 2? I NEED MY METHADONE BY 2 OR IM GONNA FREAK OUT. IM NOT GOING THROUGH WITHDRAWALS". STATES NO NEEDS AT THIS TIME. CALL LIGHT W/IN REACH.
--- NOTE | 2020-03-23 12:47 | NUR ---
PROVIDER AT BEDSIDE FOR ASSESSMENT. PLAN OF CARE DISCUSSED. QUESTIONS ANSWERED
[2020-03-23 13:04] VITALS: BP 122/80
--- NOTE | 2020-03-23 13:05 | NUR ---
PT BACK FROM CT. PT SITTING UP IN CHAIR. VSS. NAD. CALL LIGHT W/IN REACH
[2020-03-23 13:29] LABS: BASOPHILS % (AUTO) 1 % (0-1); EOSINOPHILS % (AUTO) 2 % (1-7); LYMPHOCYTES % (AUTO) 15 % (22-44); MEAN CORPUSCULAR HEMOGLOBIN 27.5 pg (27.0-34.8); MEAN PLATELET VOLUME 7.2 fL (7.4-10.4); MONOCYTES % (AUTO) 6 % (2-9); NEUTROPHILS % (AUTO) 77 % (42-75); PLATELET COUNT 248 x10^3/uL (130-400); RED BLOOD COUNT 3.74 x10^6/uL (3.82-5.3); RED CELL DISTRIBUTION WIDTH 22.2 % (9.6-15.2)
[2020-03-23] MEDS ORDERED: OMNIPAQUE 350 MG/ML, 75ML BOTTLE ONE (13:29)
[2020-03-23 13:30] LABS: HCT (SEDRATE) 31.2 % (34.6-47.8)
--- NOTE | 2020-03-23 13:30 | NUR ---
LAB AT BEDSIDE. RN BLOOD DRAW THROUGH PICC LINE. NEEDLELESS ACCESS DEVICE CHANGE FOLLOWING BLOOD DRAW USING STERILE PROCEDURE AND PER PROTOCOL. PT TOLERATED PROCEDURE W/O INCIDENT
[2020-03-23 13:37] LABS: CALCIUM 9.1 mg/dL (8.5-10.1); CHLORIDE 107 mmol/L (98-107); CREATININE 0.52 mg/dL (0.55-1.02)
--- NOTE | 2020-03-23 13:37 | NUR ---
PT STORMING OUT OF ROOM, YELLING, STATING "YOU GUYS ARE STARVING ME. I WANT FOOD AND MY FRIEND IS BRINGING ME FOOD AND YOU GUYS SENT HIM AWAY" PT ENCOURAGED TO RETURN TO ROOM. SECURITY CALLED. RN DISCUSSED LIMITED VISITING HOURS W/PT. RN BROUGHT THE FOOD THAT WAS DROPPED OFF FOR HER TO ROOM. PT CALMED DOWN. SECURITY SENT AWAY W/O INCIDENT
[2020-03-23 13:50] LABS: MD SCAN
[2020-03-23 14:05] LABS: ANION GAP 8 mmol/L (5-15)
[2020-03-23] MEDS ORDERED: METHADONE 10 MG TABLET PO ONE (14:30)
--- NOTE | 2020-03-23 15:46 | NUR ---
REPORT CALLED TO AJ AT [facility]. ALL QUESTIONS ANSWERED. ED PHONE NUMBER PROVIDED FOR FURTHER INFO IF NEEDED.
--- NOTE | 2020-03-23 15:56 | NUR ---
[facility] AT BEDSIDE FOR TRANSPORT. PT TRANSPORTED VIA WHEELCHAIR. ORDERED MEDICATION ADMINISTERED. PAPERWORK SIGNED BY PT. ALL BELONGINGS W/PT. REPORT CALLED TO AJ AT [facility]
== END 2020-03-23 16:00 | disposition home or self-care (01) ==
LOC: ED 11:50
DX: H54.7 Unspecified visual loss (principal); R51.9 Headache, unspecified
CPT/HCPCS: 36415; 70481; 80048; 82040; 85025; 85651; 86140; 99285; Q9967

== ENCOUNTER 2020-09-22 14:32 | Inpatient (IN) | payer MEDICAID ==
[~2020-09-22] VITALS: Ht 167.6 cm; Wt 76.9 kg
[~2020-09-22 14:32] MED LIST changes: -NORE0.3513 PO; +NORE0.3519 PO; +SULF-23 PO; -SULF1TAB24 PO
[2020-09-22] MEDS ORDERED: ONDANSETRON 2MG/ML, 2ML IVPush ONE (15:30)
[2020-09-22] MEDS ORDERED: HYDROmorphone 2 MG/ML, 1ML IVPush ONE (15:30)
[2020-09-22] MEDS ORDERED: SODIUM CHLORIDE FLUSH 10ML SYR IVF ONE (15:30)
[2020-09-22] MEDS ORDERED: ACETAMINOPHEN 500 MG TABLET PO ONE (15:30)
[2020-09-22] MEDS ORDERED: SODIUM CHLORIDE 0.9% 1,000ML IVBOLUS ONE (15:30)
[2020-09-22] MEDS ORDERED: ACETAMINOPHEN 500 MG TABLET ONE (15:31)
[2020-09-22] MEDS ORDERED: IBUPROFEN 600 MG TABLET ONE (15:49)
[2020-09-22 15:53] LABS: MEAN CORPUSCULAR HEMOGLOBIN 29.6 pg (27.0-34.8); MEAN CORPUSCULAR HGB CONC 33.9 g/dL (32.4-35.8); MEAN PLATELET VOLUME 9.9 fL (7.4-10.4); RED BLOOD COUNT 3.82 x10^6/uL (3.82-5.3); RED CELL DISTRIBUTION WIDTH 13.2 % (9.6-15.2)
[2020-09-22] MEDS ORDERED: IBUPROFEN 200 MG TABLET PO ONE (16:00)
[2020-09-22 16:03] LABS: ALBUMIN 2.5 g/dL (3.4-5.0); ANION GAP 12 mmol/L (5-15); CALCIUM 8.6 mg/dL (8.5-10.1); CHLORIDE 101 mmol/L (98-107)
[2020-09-22 16:08] LABS: ALKALINE PHOSPHATASE 198 U/L (45-117); BILIRUBIN,TOTAL 0.7 mg/dL (0.2-1.0); TOTAL PROTEIN 6.4 g/dL (6.4-8.2)
[2020-09-22 16:11] LABS: ALANINE AMINOTRANSFERASE 66 U/L (12-78)
[2020-09-22 16:19] LABS: PLATELET COUNT 57 x10^3/uL (130-400)
--- NOTE | 2020-09-22 16:27 | NUR ---
This pt was admitted from January to February for endocarditis and sepsis. Pt states she "felt better after she got out of the [facility]" so didn't follow up with scheduled surgery and treatment. Pt presents today after she called EMS for self for approx 3 days of general feeling of unwell. Pt reports generalized body pain, cries in pain to any movement including sitting HOB up or back. Pt reports it hurts to open her eyes but converses appropriately. Pt reports most recent heroin use by smoking today because she did not have methadone. Pt was immediately connected to all monitors. Intially awaited to give dilaudid while HCG was pending per pharmacy reccommendation. Pt now sleeping will reassess pain with VS.
[2020-09-22 16:33] LABS: BANDS%(MANUAL) 15 % (0-7); LYMPH#(MANUAL) 0.26 x10^3/uL (1-3.4); LYMPHS% (MANUAL) 8 % (22-44); MONOS#(MANUAL) 0.17 x10^3/uL (0.3-2.7); MONOS% (MANUAL) 5 % (2-9); SEG#(MANUAL) 2.38 x10^3/uL (1.8-6.8); SEGS% (MANUAL) 72 % (42-75)
[2020-09-22 16:34] LABS: <RBC MORPHOLOGY> NORMAL; LARGE PLATELETS 1+
[2020-09-22 16:35] LABS: <PLATELET ESTIMATE> DECREASED
[2020-09-22 16:40] LABS: HCT (SEDRATE) 33.4 % (34.6-47.8)
[2020-09-22] MEDS ORDERED: POTASSIUM CHLORIDE 20 MEQ TAB.ER.PRT ONE (16:47)
[2020-09-22] MEDS ORDERED: HYDROmorphone 2 MG/ML, 1ML ONE ×2 (16:47→17:29)
[2020-09-22] MEDS ORDERED: POTASSIUM CHLORIDE 40 MEQ in SODIUM CHLORIDE 0.9% 500 ML IV ONE (17:00)
[2020-09-22] MEDS ORDERED: POTASSIUM CHLORIDE 20 MEQ TAB.ER.PRT PO ONE (17:00)
[2020-09-22] MEDS ORDERED: VANCOMYCIN 1,400 MG in SODIUM CHLORIDE 0.9% 250 ML IV ONE (17:00)
[2020-09-22] MEDS ORDERED: VANCOMYCIN PER PHARMACY MC ONE (17:00)
[2020-09-22] MEDS ORDERED: PIPERACILLIN/TAZO 3.375 GM in DEXTROSE 5% 50 ML IVPB ONE (17:00)
--- NOTE | 2020-09-22 17:09 | NUR ---
Confirmed compatibility of Zosyn and potassium maintance fluids and Vanco and potassium maintance fluids with pharmacy.
[2020-09-22] MEDS ORDERED: IBUPROFEN 600 MG TABLET PO PRN (17:30)
[2020-09-22] MEDS ORDERED: LABETALOL 5MG/ML, 20ML IVPush PRN (17:30)
[2020-09-22] MEDS ORDERED: ONDANSETRON 2MG/ML, 2ML IVPush PRN (17:30)
[2020-09-22] MEDS ORDERED: ONDANSETRON 2MG/ML, 2ML ONE (17:30)
[2020-09-22] MEDS ORDERED: ENALAPRILAT 1.25 MG/ML, 2ML IVPush PRN (17:30)
--- NOTE | 2020-09-22 17:32 | NUR ---
First BP after 2L fluid bolus 101/58. ABX to be started now.
--- NOTE | 2020-09-22 17:54 | NUR ---
MD Douglas at bedside.
--- NOTE | 2020-09-22 17:54 | NUR ---
Pt ambulatory to bathroom for UA, steady gait.
[2020-09-22 18:09] LABS: MICROSCOPIC INDICATED
[2020-09-22 18:10] LABS: AMPHETAMINE SCREEN, URINE Positive (Negative); BARBITURATE SCREEN, URINE Negative (Negative); BENZODIAZEPINE SCREEN, URINE Negative (Negative); CANNABINOID SCREEN, URINE Negative (Negative); COCAINE SCREEN, URINE Negative (Negative); METHADONE SCREEN, URINE Negative (Negative); OPIATE SCREEN, URINE Positive (Negative)
[2020-09-22] MEDS ORDERED: MAGNESIUM SULFATE PMX 2GM/50ML 50 ML IV ONE (18:30)
[2020-09-22] MEDS ORDERED: VANCOMYCIN PER PHARMACY MC PRN (18:30)
[2020-09-22] MEDS ORDERED: PHARMACY MAY ADJ FOR RENAL FX MC PRN (18:30)
[2020-09-22] MEDS ORDERED: ENOXAPARIN 40 MG/0.4 ML SQ SCH (18:30)
[2020-09-22 18:50] VITALS: BP 91/52
[2020-09-22] MEDS ORDERED: PIPERACILLIN/TAZO 4.5 GM in SODIUM CHLORIDE 0.9% 100 ML IVPB SCH ×2 (19:30→23:00)
[2020-09-22 19:45] VITALS: BP 96/63
[2020-09-22 21:16] VITALS: BP 105/64
[2020-09-22] MEDS: GABAPENTIN 300 MG CAPSULE PO SCH (21:34)
[2020-09-22] MEDS: METHADONE 10 MG TABLET PO SCH (21:34)
[2020-09-22] MEDS: LACTATED RINGERS 1,000 ML IV SCH (21:35)
[2020-09-23 01:06] VITALS: BP 111/68
[2020-09-23] MEDS: ACETAMINOPHEN 325 MG TABLET PO PRN ×2 (02:24→17:39)
[2020-09-23] MEDS: VANCOMYCIN 1,000 MG in SODIUM CHLORIDE 0.9% 100 ML IV SCH ×3 (03:24→19:51)
[2020-09-23] MEDS: METHADONE 10 MG TABLET PO SCH ×3 (03:24→19:51)
[2020-09-23 05:08] LABS: MEAN CORPUSCULAR HEMOGLOBIN 30.5 pg (27.0-34.8); MEAN PLATELET VOLUME 10.1 fL (7.4-10.4); RED BLOOD COUNT 3.49 x10^6/uL (3.82-5.3); RED CELL DISTRIBUTION WIDTH 13.4 % (9.6-15.2)
[2020-09-23] MEDS: LACTATED RINGERS 1,000 ML IV SCH (05:11)
[2020-09-23 05:14] LABS: ALANINE AMINOTRANSFERASE 52 U/L (12-78); ALBUMIN 2.2 g/dL (3.4-5.0); ANION GAP 5 mmol/L (5-15); CALCIUM 8.6 mg/dL (8.5-10.1); CHLORIDE 109 mmol/L (98-107); CREATININE 0.64 mg/dL (0.55-1.02)
[2020-09-23 05:16] LABS: ALKALINE PHOSPHATASE 167 U/L (45-117); BILIRUBIN,TOTAL 0.6 mg/dL (0.2-1.0); TOTAL PROTEIN 5.8 g/dL (6.4-8.2)
[2020-09-23 05:59] LABS: PLATELET COUNT 45 x10^3/uL (130-400)
[2020-09-23 06:03] LABS: <PLATELET ESTIMATE> DECREASED; <RBC MORPHOLOGY> NORMAL; BAND#(MANUAL) 0.49 x10^3/uL; BANDS%(MANUAL) 14 % (0-7); LARGE PLATELETS 1+; LYMPH#(MANUAL) 0.28 x10^3/uL (1-3.4); LYMPHS% (MANUAL) 8 % (22-44); MONOS#(MANUAL) 0.21 x10^3/uL (0.3-2.7); MONOS% (MANUAL) 6 % (2-9); SEG#(MANUAL) 2.52 x10^3/uL (1.8-6.8); SEGS% (MANUAL) 72 % (42-75)
[2020-09-23 07:37] VITALS: BP 98/60
[2020-09-23] MEDS: GABAPENTIN 300 MG CAPSULE PO SCH ×3 (09:19→21:45)
[2020-09-23 15:59] VITALS: BP 118/71
[2020-09-23] MEDS: BUTALB/APAP/CAFFEINE 50MG/325MG/40MG PO PRN (18:21)
[2020-09-23 20:38] VITALS: BP 97/59
[2020-09-24 02:30] VITALS: BP 105/56
[2020-09-24] MEDS: BUTALB/APAP/CAFFEINE 50MG/325MG/40MG PO PRN ×2 (03:08→22:08)
[2020-09-24 03:19] LABS: MEAN CORPUSCULAR HEMOGLOBIN 29.6 pg (27.0-34.8); MEAN CORPUSCULAR HGB CONC 33.4 g/dL (32.4-35.8); MEAN PLATELET VOLUME 9.8 fL (7.4-10.4); PLATELET COUNT 58 x10^3/uL (130-400); RED BLOOD COUNT 3.71 x10^6/uL (3.82-5.3); RED CELL DISTRIBUTION WIDTH 13.6 % (9.6-15.2)
[2020-09-24 03:30] LABS: ALBUMIN 2.3 g/dL (3.4-5.0); ANION GAP 6 mmol/L (5-15); CALCIUM 8.8 mg/dL (8.5-10.1); CHLORIDE 103 mmol/L (98-107)
[2020-09-24 03:34] LABS: ALANINE AMINOTRANSFERASE 49 U/L (12-78); ALKALINE PHOSPHATASE 177 U/L (45-117); BILIRUBIN,TOTAL 0.4 mg/dL (0.2-1.0); CREATININE 0.54 mg/dL (0.55-1.02); TOTAL PROTEIN 6.3 g/dL (6.4-8.2)
[2020-09-24 03:47] LABS: BAND#(MANUAL) 0.29 x10^3/uL; BANDS%(MANUAL) 8 % (0-7); BASOS#(MANUAL) 0.04 x10^3/uL (0-0.1); BASOS% (MANUAL) 1 % (0-1); EOS#(MANUAL) 0.04 x10^3/uL (0.0-0.4); EOS% (MANUAL) 1 % (1-7); LYMPH#(MANUAL) 0.29 x10^3/uL (1-3.4); LYMPHS% (MANUAL) 8 % (22-44); MONOS#(MANUAL) 0.22 x10^3/uL (0.3-2.7); MONOS% (MANUAL) 6 % (2-9); SEG#(MANUAL) 2.74 x10^3/uL (1.8-6.8); SEGS% (MANUAL) 76 % (42-75)
[2020-09-24 03:48] LABS: <PLATELET ESTIMATE> DECREASED; <RBC MORPHOLOGY> NORMAL; LARGE PLATELETS 1+
[2020-09-24] MEDS: METHADONE 10 MG TABLET PO SCH ×3 (04:00→19:49)
[2020-09-24] MEDS: VANCOMYCIN 1,000 MG in SODIUM CHLORIDE 0.9% 100 ML IV SCH (04:00)
[2020-09-24 07:52] VITALS: BP 107/72
[2020-09-24] MEDS ORDERED: VANCOMYCIN 1,000 MG in SODIUM CHLORIDE 0.9% 100 ML IV SCH (10:00)
[2020-09-24] MEDS: GABAPENTIN 300 MG CAPSULE PO SCH ×3 (11:19→21:42)
[2020-09-24 12:34] VITALS: BP 102/64
[2020-09-24] MEDS: DAPTOMYCIN IV SCH (13:58)
[2020-09-24] MEDS: SODIUM CHLORIDE 0.9% IV SCH (13:58)
[2020-09-24] MEDS: ACETAMINOPHEN 325 MG TABLET PO PRN (14:27)
[2020-09-24] MEDS: ONDANSETRON ODT 4 MG PO PRN (15:15)
[2020-09-24] MEDS: MEROPENEM 1 GM in SODIUM CHLORIDE 0.9% 100 ML IV SCH (19:46)
[2020-09-24 20:12] VITALS: BP 103/63
[2020-09-25 02:43] VITALS: BP 112/56
[2020-09-25] MEDS: BUTALB/APAP/CAFFEINE 50MG/325MG/40MG PO PRN ×3 (02:50→20:01)
[2020-09-25] MEDS: MEROPENEM 1 GM in SODIUM CHLORIDE 0.9% 100 ML IV SCH ×3 (02:50→19:49)
[2020-09-25] MEDS: METHADONE 10 MG TABLET PO SCH ×3 (03:52→19:48)
[2020-09-25 07:23] VITALS: BP 100/64
[2020-09-25] MEDS: GABAPENTIN 300 MG CAPSULE PO SCH ×3 (10:24→20:01)
[2020-09-25] MEDS: DAPTOMYCIN IV SCH (12:41)
[2020-09-25] MEDS: SODIUM CHLORIDE 0.9% IV SCH (12:41)
[2020-09-25 13:56] VITALS: BP 101/60
[2020-09-25 19:55] VITALS: BP 104/61
[2020-09-25] MEDS: ACETAMINOPHEN 325 MG TABLET PO PRN (23:10)
[2020-09-26 00:28] VITALS: BP 106/65
[2020-09-26] MEDS: MEROPENEM 1 GM in SODIUM CHLORIDE 0.9% 100 ML IV SCH ×2 (03:46→12:07)
[2020-09-26] MEDS: METHADONE 10 MG TABLET PO SCH ×2 (03:46→12:06)
[2020-09-26] MEDS: ONDANSETRON ODT 4 MG PO PRN (03:54)
[2020-09-26 04:10] LABS: BASOPHILS % (AUTO) 1 % (0-1); EOSINOPHILS % (AUTO) 2 % (1-7); LYMPHOCYTES % (AUTO) 12 % (22-44); MEAN CORPUSCULAR HGB CONC 34.1 g/dL (32.4-35.8); MEAN PLATELET VOLUME 9.3 fL (7.4-10.4); MONOCYTES % (AUTO) 10 % (2-9); NEUTROPHILS % (AUTO) 76 % (42-75); PLATELET COUNT 123 x10^3/uL (130-400); RED BLOOD COUNT 3.36 x10^6/uL (3.82-5.3); RED CELL DISTRIBUTION WIDTH 13.9 % (9.6-15.2)
[2020-09-26 04:12] LABS: ALANINE AMINOTRANSFERASE 47 U/L (12-78); ALBUMIN 1.9 g/dL (3.4-5.0); ANION GAP 5 mmol/L (5-15); CALCIUM 8.5 mg/dL (8.5-10.1); CHLORIDE 102 mmol/L (98-107); CREATININE 0.53 mg/dL (0.55-1.02)
[2020-09-26 04:14] LABS: ALKALINE PHOSPHATASE 196 U/L (45-117); BILIRUBIN,TOTAL 0.3 mg/dL (0.2-1.0); TOTAL PROTEIN 6.2 g/dL (6.4-8.2)
[2020-09-26 08:48] VITALS: BP 108/62
[2020-09-26] MEDS: BUTALB/APAP/CAFFEINE 50MG/325MG/40MG PO PRN (09:35)
[2020-09-26] MEDS: GABAPENTIN 300 MG CAPSULE PO SCH (09:35)
[2020-09-26] MEDS ORDERED: DAPTOMYCIN IV SCH (12:00)
[2020-09-26] MEDS ORDERED: SODIUM CHLORIDE 0.9% IV SCH (12:00)
== END 2020-09-26 12:41 | disposition left against medical advice (07) | DRG 872 ==
LOC: SUATTDRO 17:00 → ED 17:02 → EDIP 17:24 → 4WST 18:00
PROVIDERS: ADMIT Family Medicine; ATTEND Internal Medicine
DX: A41.89 Other specified sepsis (principal); D61.818 Other pancytopenia; E87.2 Acidosis; N39.0 Urinary tract infection, site not specified; B95.61 Methicillin susceptible Staphylococcus aureus infection as the cause of diseases classified elsewhere; B96.20 Unspecified Escherichia coli [E. coli] as the cause of diseases classified elsewhere; F15.10 Other stimulant abuse, uncomplicated; F90.9 Attention-deficit hyperactivity disorder, unspecified type; E83.42 Hypomagnesemia; E87.6 Hypokalemia; Z59.0 Homelessness; Z76.5 Malingerer [conscious simulation]; Z87.01 Personal history of pneumonia (recurrent); Z90.721 Acquired absence of ovaries, unilateral
CPT/HCPCS: 36415; 70100; 71045; 74018; 80053; 80202; 80307; 80356; 81001; 82550; 83605; 83735; 84145; 84703; 85025; 85651; 86140; 86430; 86705; 86706; 86803; 87040; 87077; 87086; 87147; 87184; 87186; 87340; 87806; 93005; 93306; 96361; 96374; 96375; G0378; J0878; J1170; J1650; J2185; J2405; J2543; J3370; J3480; Q0162; G0475; G0480; J3475; J7030; J7040; J7050; J7120